=== PATIENT | female | born 1955 | race Caucasian/White ===

== ENCOUNTER → 2016-12-04 | Outpatient (CLI) | payer MEDICAID | LOC: WC.BC 14:58 | DX: Z12.31 Encounter for screening mammogram for malignant neoplasm of breast (principal) ==

== ENCOUNTER 2016-12-14 22:17 | Emergency (ER) | payer MEDICAID ==
[~2016-12-14] VITALS: Ht 158.1 cm; Wt 101.2 kg
--- OUTSIDE RECORDS SUMMARY | 2016-12-14 22:21 | XMS REPORT | Referral Summary ---
Author Author [facility] KRIST[facility] Benitez [facility], [facility] Organization [facility] KRIST[facility] Benitez [facility] Address Unknown Phone Unavailable Care Team Providers Care Accountant Manager Name Role Phone Aisha Ornelas Primary Care Physician [phone] Encounter VC Date(s): 10/20/15 - 10/20/15 [facility] KRISTIN Benitez [facility] [address] [place] [address]- Discharge Diagnosis: Myalgia Discharge Diagnosis: Depression Discharge Diagnosis: Dyslipidemia Discharge Diagnosis: Asthma Discharge Disposition: 01-Home or Self Care Attending Physician: Miles Ornelas MD Admitting Physician: Miles Ornelas MD Vital Signs Most recent to 1 oldest [Reference Range]: Temperature Tympanic 36.2 degC [36.6-38.1 degC] *LOW* (10/20/15 8:57 AM) Blood Pressure 108/72 mmHg [90-140/60-90 mmHg] (10/20/15 8:57 AM) Problem List Condition Effective Dates Status Health Status Informant Adhesive right < 08/03/14 Resolved middle ear disease(Confirmed) Asthma(Confirmed) Active Depression(Confirmed Active ) Rotator cuff < 08/03/14 Resolved tear(Confirmed) Dyslipidemia(Confirm Active ed) Family history of Active diabetes mellitus(Confirmed) Elevated fasting Active glucose(Confirmed) Insomnia(Confirmed) < 08/03/14 Resolved Morbid Active patient obesity(Confirmed) Obesity(Confirmed) Active patient Knee < 07/07/14 Resolved osteoarthritis(Confi rmed) Osteopenia(Confirmed Active )1 Osteopenia(Confirmed Active ) Panic disorder with < 08/03/14 Resolved agoraphobia(Confirme d) Seasonal Active allergies(Confirmed) Vertigo(Confirmed) < 08/03/14 Resolved Vitamin D < 08/03/14 Resolved deficiency(Confirmed ) 1dexa 08/12 Allergies, Adverse Reactions, Alerts Substance Reaction Severity Status ciprofloxacin1 Active Keflex Active niacin2 Active simvastatin3 Active 1nausea, hot flashes 2rash at high doses 3paralysis OK with penicillin Medications Advair Diskus 500 mcg-50 mcg inhalation powder See Instructions, INHALE ONE PUFF BY MOUTH TWICE A DAY, # 28 Each, 5 Refill(s), Pharmacy: [facility] #[id number] Start Date: 06/15/15 Status: Ordered cetirizine 10 mg oral tablet See Instructions, TAKE ONE TABLET BY MOUTH DAILY NEEDED FOR ALLERGY SYMPTOMS , # 90 tabs, 1 Refill(s), Pharmacy: [facility] #[id number], TAKE ONE TABLET BY MOUTH DAILY NEEDED FOR ALLERGY SYMPTOMS Start Date: 06/15/15 Stop Date: 06/15/16 Status: Ordered citalopram 40 mg oral tablet 1 tabs, Oral, Daily, # 30 tabs, 3 Refill(s), Pharmacy: [facility] #[id number] , 1 tabs Oral Daily Start Date: 07/07/14 Status: Ordered fluticasone 50 mcg/inh nasal spray 1 sprays, Nasal, BID, # 1 Each, 3 Refill(s), Pharmacy: [facility] #[id number] Start Date: 06/15/15 Status: Ordered garlic oral tablet 0 Refill(s) Start Date: 11/04/14 Status: Ordered lovastatin 40 mg oral tablet See Instructions, TAKE ONE TABLET BY MOUTH DAILY, # 90 tabs, 1 Refill(s), Pharmacy: [facility] #[id number], TAKE ONE TABLET BY MOUTH DAILY Start Date: 06/15/15 Status: Ordered meclizine 25 mg oral tablet See Instructions, TAKE ONE TABLET BY MOUTH THREE TIMES A DAY NEEDED FOR DIZZINESS, # 30 tabs, 2 Refill(s), eRx: [facility] #[id number], TAKE ONE TABLET BY MOUTH THREE TIMES A DAY NEEDED FOR DIZZINESS Start Date: 09/09/15 Status: Ordered meloxicam 15 mg oral tablet See Instructions, TAKE ONE TABLET BY MOUTH DAILY, # 30 tabs, 2 Refill(s), eRx: [facility] #[id number], TAKE ONE TABLET BY MOUTH DAILY Start Date: 10/20/15 Status: Ordered Singulair 10 mg oral tablet 1 tabs, Oral, qPM, # 30 tabs, 11 Refill(s), 1 tabs Oral qPM Start Date: 07/07/14 Status: Ordered Ventolin HFA 90 mcg/inh inhalation aerosol 2 puffs, Inhalation, QID, as needed for wheezing, # 8 g, 3 Refill(s), Pharmacy: [facility] #[id number], 2 puffs Inhalation QID,PRN:as needed for wheezing Start Date: 06/15/15 Status: Ordered Wellbutrin Oral, Daily, 0 Refill(s) Start Date: 06/15/15 Status: Ordered Results Hematology Most recent to 1 oldest [Reference Range]: Sed Rate [0-23] 8 (10/20/15 9:35 AM) Chemistry Most recent to 1 oldest [Reference Range]: Sodium Lvl [135-144 142 mEq/L mEq/L] (10/20/15 9:35 AM) Potassium Lvl 4.3 mEq/L [3.5-5.2 mEq/L] (10/20/15 9:35 AM) Chloride [99-111 110 mEq/L mEq/L] (10/20/15 9:35 AM) CO2 [22-31 mEq/L] 27 mEq/L (10/20/15 9:35 AM) AGAP [3-20] 5 (10/20/15 9:35 AM) BUN [10-20 mg/dL] 19 mg/dL (10/20/15 9:35 AM) Glucose Lvl [70-99 93 mg/dL mg/dL] (10/20/15 9:35 AM) Creatinine Lvl 0.93 mg/dL [0.57-1.11 mg/dL] (10/20/15 9:35 AM) eGFR [>60 mL/min] >60 mL/min 1 (10/20/15 9:35 AM) Calcium Lvl 9.3 mg/dL [8.9-10.5 mg/dL] (10/20/15 9:35 AM) Albumin Lvl [3.4-4.8 4.0 gm/dL gm/dL] (10/20/15 9:35 AM) Total Protein 6.7 gm/dL [6.2-8.1 gm/dL] (10/20/15 9:35 AM) Globulin [1.8-4.0 2.7 gm/dL gm/dL] (10/20/15 9:35 AM) ALT [0-55 U/L] 10 U/L (10/20/15 9:35 AM) AST [5-34 U/L] 13 U/L (10/20/15 9:35 AM) Alk Phos [40-150 70 U/L U/L] (10/20/15 9:35 AM) Bili Total [0.2-1.2 0.7 mg/dL mg/dL] (10/20/15 9:35 AM) Total CK [29-168 62 U/L U/L] (10/20/15 9:35 AM) 1Result Comment: Multiply eGFR results by 1.21 for race. Immunizations Vaccine Date Refusal Reason tetanus/diphth/pertuss (Tdap) adult/adol 07/07/14 tetanus/diphth/pertuss (Tdap) adult/adol 03/21/11 influenza virus vaccine, inactivated 05/09/15 influenza virus vaccine, inactivated 07/07/14 influenza virus vaccine, inactivated 05/02/12 influenza virus vaccine, inactivated 04/30/11 pneumococcal 13-valent conjugate vaccine1 07/07/14 pneumococcal 23-polyvalent vaccine 04/04/11 zoster vaccine live 08/06/14 1Result Comment: POSTERIOR AND LOWER THAN FLU SHOT Procedures Procedure Date Related Diagnosis Body Site Diagnostic laryngoscopy1 09/02/12 Prosthetic arthroplasty of right knee 07/29/09 Prosthetic arthroplasty of left knee 02/26/09 Appendectomy Benign skin tumor Complete repair of rotator cuff2 Repair of middle ear 1normal 2right shoulder Social History Social History Type Response Smoking Status Never smoker Assessment and Plan Extracted from: Title: Office Visit Note Author: Miles Ornelas MD Date: 10/20/15 Assessment/Plan Asthma, Unspecified asthma, uncomplicated Chronic stable no change in current treatment. Ordered: Office Visit Level 4 Est 62591 Depression, Major depressive disorder, single episode, unspecified Overall this appears stable. Medications reviewed no changes are recommended. Ordered: Office Visit Level 4 Est 06460 Dyslipidemia, Hyperlipidemia, unspecified This is chronicand stable. Because of her myalgias have asked her to stopher lovastatin for the next 2 weeks and see if that helps. If it doesn' t we'll resume that if it does seem to be helping we'll try different medication. Ordered: Office Visit Level 4 Est 46512 Myalgia, Myalgia Laboratory studies ordered. Medications reviewed. As mentioned aboveI will have herstop her lovastatin and see if that doesn't help. She may resume wcequppey44 mg daily. If not improving or further problems develop follow-up. Ordered: Comprehensive Metabolic Panel Creatine Kinase Office Visit Level 4 Est 19884 Sedimentation Rate History of learning disability I told her that I am uncomfortable and not able to fill out paperwork stating that she has a learning disability without some documentation. That's not something we can do testing for here in our office. We'll see if we can find a place that cangive ussome further information or perhaps do some further testing.
--- OUTSIDE RECORDS SUMMARY | 2016-12-14 22:21 | XMS REPORT ---
Author Author Chiara Sanchez Organization [employer] Address Unknown Phone Unavailable Care Team Providers Care Software Configuration Specialist Name Role Phone Chiara Sanchez CP Unavailable Allergies, Adverse Reactions, Alerts Substance Reaction Event Type Keflex paralysis Drug Allergy Problems Problem Type Condition Code Onset Dates Condition Status Assessment Major depressive disorder, single episode, in partial or unspecified remission 296.25 Active Problem Major depressive disorder, single episode, in partial or unspecified remission 296.25 Active Medications Medication Code System Code Instructions Start Date End Date Status Dosage Ventolin HFA [facility] [address]-24 108 (90 Base) MCG/ACT Inhalation every 4 hrs 2 puffs as needed Trazodone HCl [facility] [address]-93 50 MG Orally Once a day 1 tablet at bedtime Advair Diskus [facility] [address]-77 100-50 MCG/DOSE Inhalation Twice a day 1 puff Singulair [facility] [address]-96 10 MG Orally Once a day 1 tablet in the evening Lovastatin [facility] [address]-29 40 MG Orally Once a day 1 tablet with a meal Citalopram Hydrobromide [facility] [address]-28 40 MG Orally Once a day 1 tablet Flonase [facility] [address]-44 50 MCG/ACT Nasally Once a day 1 spray in each nostril Procedures Procedure Coding System Code Date OFFICE VISIT, EST-MOD. COMPLEXITY (25 MIN) CPT-4 52860 November 09, 2014 Vital Signs Date/Time: November 09, 2014 Height 63.5 in Weight 212.8 lbs Temperature 99.0 F Blood Pressure Diastolic 70 mm Hg Blood Pressure Systolic 104 mm Hg Cardiac Monitoring Heart Rate 82 /min BMI 37.10 Index Respiratory Rate 20 /min Results No Known Results Summary Purpose [employer] Submission
--- OUTSIDE RECORDS SUMMARY | 2016-12-14 22:21 | XMS REPORT | Referral Summary ---
Author Author [facility]ST[facility], [facility] Organization Via DebbieKRISTIN Zepeda [facility] Address Unknown Phone Unavailable Care Team Providers Care Bottle Blower Name Role Phone Randall Rivers Primary Care Physician [phone] Encounter VC Date(s): 12/29/14 - 12/29/14 [facility]RIST[facility]ite[facility], [address] [place] [address] Discharge Disposition: 01-Home or Self Care Attending Physician: Rony Rivers MD Admitting Physician: Rony Rivers MD Vital Signs Most recent to 1 oldest [Reference Range]: Temperature Tympanic 36.5 degC [36.6-38.1 degC] *LOW* (12/29/14 9:44 AM) Peripheral Pulse 72 bpm Rate [60-100 bpm] (12/29/14 9:44 AM) Blood Pressure 106/70 mmHg [90-140/60-90 mmHg] (12/29/14 9:44 AM) Problem List Condition Effective Dates Status [...] DAY, # 28 Each, 5 Refill(s), Pharmacy: [facility] #[id number] Start Date: 06/15/15 Status: Ordered cetirizine 10 mg oral tablet See Instructions, TAKE ONE TABLET BY MOUTH DAILY NEEDED FOR ALLERGY SYMPTOMS , # 90 tabs, 1 Refill(s), Pharmacy: [facility] #[id number], TAKE ONE TABLET BY MOUTH DAILY NEEDED FOR ALLERGY SYMPTOMS Start Date: 06/15/15 Stop Date: 06/15/16 Status: Ordered citalopram 40 mg oral tablet 1 tabs, Oral, Daily, # 30 tabs, 3 Refill(s), Pharmacy: [facility] #[id number] , 1 tabs Oral Daily Start Date: 07/07/14 Status: Ordered fluticasone 50 mcg/inh nasal spray 1 sprays, Nasal, BID, # 1 Each, 3 Refill(s), Pharmacy: [facility] #[id number] Start Date: 06/15/15 Status: Ordered garlic oral tablet 0 Refill(s) Start Date: 11/04/14 Status: Ordered lovastatin 40 mg oral tablet See Instructions, TAKE ONE TABLET BY MOUTH DAILY, # 90 tabs, 1 Refill(s), Pharmacy: [facility] #[id number], TAKE ONE TABLET BY MOUTH DAILY Start Date: 06/15/15 Status: Ordered MiraLax oral powder for reconstitution 17 g, Oral, Daily, dissolve in water before taking, X 30 days, # 510 g, 1 Refill (s), Pharmacy: [facility] #[id number] Start Date: 06/15/15 Stop Date: 08/14/15 Status: Ordered Singulair 10 mg oral tablet 1 tabs, Oral, qPM, # 30 tabs, 11 Refill(s), 1 tabs Oral qPM Start Date: 07/07/14 Status: Ordered Ventolin HFA 90 mcg/inh inhalation aerosol 2 puffs, Inhalation, QID, as needed for wheezing, # 8 g, 3 Refill(s), Pharmacy: [facility] #[id number], 2 puffs Inhalation QID,PRN:as needed for wheezing Start Date: 06/15/15 Status: Ordered Wellbutrin Oral, Daily, 0 Refill(s) Start Date: 06/15/15 Status: Ordered Results No data available for this section Immunizations Vaccine Date Refusal Reason tetanus/diphth/pertuss (Tdap) [...] Extracted from: Title: Office Visit Note Author: Rony Rivers MD Date: 12/29/14 Assessment/Plan Asthma Depression Seasonal allergies Plan: For now, continue all current medications. I've consulted with Dr. Nguyen and waiting to hear back from her. Continue all current medications such as Singulair Zyrtec Advair and pro-air. I do think you could stay on the Provera just 4 times a day. I wonder if the sensation of shortness of breath could possibly be anxiety we'll keep this in mind as I continue to treat.
--- OUTSIDE RECORDS SUMMARY | 2016-12-14 22:21 | XMS REPORT | Referral Summary ---
Author Author [facility] K[facility]STIN [facility]itez [facility], [facility] Organization [facility]ST[facility]ite[facility] Address Unknown Phone Unavailable Care Team Providers Care Foaming Machine Operator Name Role Phone Aisha Ornelas Primary Care Physician [phone] Encounter [facility] [id number] Date(s): 05/01/16 - 05/01/16 [facility]RISTIN Benitez [facility], [address] [place] [address]- Discharge Diagnosis: Encounter for immunization Discharge Diagnosis: Asthma exacerbation Discharge Diagnosis: Dry cough Discharge Diagnosis: Hand dermatitis Discharge Diagnosis: Seasonal allergies Discharge Diagnosis: Lumbago Discharge Disposition: 01-Home or Self Care Attending Physician: Isamar Shields APRN Admitting Physician: Isamar Shields APRN Vital Signs Most recent to 1 oldest [Reference Range]: Temperature Tympanic 36.1 degC [36.6-38.1 degC] *LOW* (05/01/16 1:21 PM) Peripheral Pulse 84 bpm Rate [60-100 bpm] (05/01/16 1:21 PM) Respiratory Rate 24 br/min [14-20 br/min] *HI* (05/01/16 1:21 PM) Blood Pressure 118/80 mmHg [90-140/60-90 mmHg] (05/01/16 1:21 PM) SpO2 95 % (05/01/16 1:21 PM) Problem List Condition Effective Dates Status Health [...] DAY, # 28 Each, 5 Refill(s), Pharmacy: [facility] #[id number] Start Date: 06/15/15 Status: Ordered cetirizine 10 mg oral tablet See Instructions, TAKE ONE TABLET BY MOUTH DAILY NEEDED FOR ALLERGY SYMPTOMS , # 90 tabs, 0 Refill(s), Pharmacy: [facility] #[id number], TAKE ONE TABLET BY MOUTH DAILY NEEDED FOR ALLERGY SYMPTOMS Start Date: 04/18/16 Status: Ordered fluticasone 50 mcg/inh nasal spray 1 sprays, Nasal, BID, # 1 Each, 3 Refill(s), Pharmacy: [facility] #[id number] Start Date: 04/24/16 Status: Ordered garlic oral tablet 0 Refill(s) Start Date: 11/04/14 Status: Ordered lovastatin 40 mg oral tablet See Instructions, TAKE ONE TABLET BY MOUTH DAILY, # 90 tabs, 3 Refill(s), Pharmacy: [facility] #[id number], TAKE ONE TABLET BY MOUTH DAILY Start Date: 02/17/16 Status: Ordered meclizine 25 mg oral tablet See Instructions, TAKE ONE TABLET BY MOUTH THREE TIMES A DAY NEEDED FOR DIZZINESS, # 30 tabs, eRx: [facility] #[id number], TAKE ONE TABLET BY MOUTH THREE TIMES A DAY NEEDED FOR DIZZINESS Start Date: 02/17/16 Status: Ordered meloxicam 15 mg oral tablet See Instructions, TAKE ONE TABLET BY MOUTH DAILY as needed for pain, # 30 tabs, 2 Refill(s), Pharmacy: [facility] #[id number], TAKE ONE TABLET BY MOUTH DAILY as needed for pain Start Date: 11/07/15 Status: Ordered predniSONE 10 mg oral tablet See Instructions, 4 tabs dly 3 days, 3 tabs dly 3 days, 2 tabs dly 3 days, one tab dly 3 days then stop. with food, # 30 tabs, 0 Refill(s), Pharmacy: [facility] #[id number], 4 tabs dly 3 days, 3 tabs dly 3 days, 2 tabs dly 3 days, one tab... Start Date: 05/01/16 Stop Date: 05/15/16 Status: Ordered Singulair 10 mg oral tablet 10 mg 1 tabs, Oral, qPM, # 90 tabs, 3 Refill(s), Pharmacy: [facility] # [id number], 1 tabs Oral qPM Start Date: 05/01/16 Status: Ordered triamcinolone 0.1% topical cream 1 chinmay, Topical, BID, hand eczema, # 60 g, 0 Refill(s), Pharmacy: [facility] #[id number] Start Date: 05/01/16 Status: Ordered Ventolin HFA 90 mcg/inh inhalation aerosol 2 puffs, Inhalation, QID, as needed for wheezing, # 8 g, 3 Refill(s), Pharmacy: [facility] #[id number], 2 puffs Inhalation QID,PRN:as needed for wheezing Start Date: 06/15/15 Status: Ordered Vitamin D3 1000 intl units oral tablet 1,000 Intl_Units 1 tabs, Oral, Daily, # 30 tabs, 0 Refill(s) Start Date: 03/16/16 Status: Ordered Wellbutrin Oral, Daily, TAKE 300 MG QD, 0 Refill(s) Start Date: 06/15/15 Status: Ordered Results No data available for this section Immunizations Vaccine Date Refusal Reason tetanus/diphth/pertuss (Tdap) adult/adol 07/07/14 tetanus/diphth/pertuss (Tdap) adult/adol 03/21/11 influenza virus vaccine, inactivated 05/01/16 influenza virus vaccine, inactivated 05/09/15 influenza virus [...] and Plan Extracted from: Title: Office Visit Note-asthma Author: Isamar Shields MEAT SALES AND STORAGE MANAGER Date: 05/01 exac Assessment/Plan 1.Asthma exacerbation Mild. Prolonged. Recommend prednisone taper. Side effects discussed. Continue use of Advair and albuterol as she is doing. Continue using spacer. Recommend restarting Singulair 10 mg daily. ContinueCetirizine 10 mg daily. Plan recheck in 10 days or sooner if symptoms fail to improve. Ordered: XR Chest 2 Views 2.Dry cough Chest x-ray to rule out other etiology. I suspecther cough is related to asthma exacerbation. Ordered: XR Chest 2 Views 3.Hand dermatitis Discussed nature of her Route hand dermatitis. Recommend triamcinolone creamtwice a day till clear. Discussed the importance of moisturizmoisturizinging hands. 4.Seasonal allergies Continue routine medications. 5.Lumbago Discussed with patient I suspect her back pain is more muscular in nature. Discussed stretching exercises and strengthening for the back. Heat, muscle rubs. Continue meloxicam. Counseled on flu vaccine. Given by nursing.
--- OUTSIDE RECORDS SUMMARY | 2016-12-14 22:21 | XMS REPORT ---
Author Author Savage Rodriguez [facility] Address [address] [place] [address] Care Team Providers Care Flat Spring Assembler Name Role Phone Savage Rodriguez Unavailable [phone] PROBLEMS Type Condition ICD9-CM Code RBR79-LE Code Onset Dates Condition Status SNOMED Code Problem Major depressive disorder, recurrent, in partial remission F33.41 Active 58933079 Assessment Major depressive disorder, recurrent, in partial remission F33.41 Jun, Active 32408779 Assessment Disappearance and of family member Z63.4 Jun, Active [id number] ALLERGIES Substance Reaction Event Type Date Status Keflex paralysis Drug Allergy Jun, Active seasonial allergies Unknown Non Drug Allergy Jun, Active SOCIAL HISTORY No smoking Hx information available PLAN OF CARE VITAL SIGNS Weight 207.8 lbs 2016-07-03 Height 63.5 in 2016-07-03 Temperature 98.6 degrees Fahrenheit 2016-07-03 BMI 36.23 kg/m2 2016-07-03 Heart Rate 80 /min 2016-07-03 Respiratory Rate 20 /min 2016-07-03 Blood pressure systolic 118 mm Hg 2016-07-03 Blood pressure diastolic 80 mm Hg 2016-07-03 MEDICATIONS Medication Instructions Dosage Frequency Start Date End Date Duration Status Flonase 50 MCG/ACT Nasally Once a day 1 spray in each nostril 24h 30 day(s) Active Wellbutrin XL 300 MG Orally Once a day 1 tablet in the morning 24h Apr, 90 days Active Advair Diskus 100-50 MCG/DOSE Inhalation Twice a day 1 puff 12h Active Ventolin HFA 108 (90 Base) MCG/ACT Inhalation every 4 hrs 2 puffs as needed 4h Active Citalopram Hydrobromide 40 MG Orally Once a day 1 tablet 24h 90 days Active Wellbutrin XL 150 MG Orally Once a day 1 tablet in addition to 300mg to equal wellbutrin xl 450mg 24h Jun, 90 days Active Lovastatin 40 MG Orally Once a day 1 tablet with a meal 24h 30 day(s ) Active Singulair 10 MG Orally Once a day 1 tablet in the evening 24h 30 day( s) Active Meclizine HCl 25 MG Orally Once a day 1 tablet as needed 24h Active RESULTS No Results PROCEDURES Procedure Date Ordered Related Diagnosis Body Site OFFICE VISIT, EST-MOD. COMPLEXITY (25 MIN) Jul 03, 2016 IMMUNIZATIONS No Known Immunizations
--- OUTSIDE RECORDS SUMMARY | 2016-12-14 22:22 | XMS REPORT | Referral Summary ---
Author Author [facility]ST[facility], [facility] Organization [facility] Address Unknown Phone Unavailable Care Team Providers Care Retoucher Photoengraving Name Role Phone Aisha Ornelas Primary Care Physician [phone] Encounter VC Date(s): 08/06/16 - 08/06/16 [facility] KRIST[facility] Benitez [facility], [address] [place] [address]- Discharge Diagnosis: Asthma exacerbation Discharge Diagnosis: Hoarseness Discharge Diagnosis: Acute URI Discharge Disposition: 01-Home or Self Care Attending Physician: Ruben Castellanos PA-C Admitting Physician: Ruben Castellanos PA-C Vital Signs Most recent to 1 oldest [Reference Range]: Temperature Tympanic 36.8 degC [36.6-38.1 degC] (08/06/16 1:10 PM) Peripheral Pulse 78 bpm Rate [60-100 bpm] (08/06/16 1:10 PM) Blood Pressure 122/86 mmHg [90-140/60-90 mmHg] (08/06/16 1:10 PM) SpO2 94 % (08/06/16 1:10 PM) Problem List Condition Effective Dates Status Health Status Informant Adhesive right < 08/03/14 Resolved middle ear disease(Confirmed) Asthma(Confirmed) Active Depression(Confirmed Active ) Rotator cuff < 08/03/14 Resolved tear(Confirmed) Dyslipidemia(Confirm Active ed) Family history of Active diabetes mellitus(Confirmed) Elevated fasting Active glucose(Confirmed) Insomnia(Confirmed) < 08/03/14 Resolved Morbid Active patient obesity(Confirmed) Obesity(Confirmed) Active Knee < 07/07/14 Resolved osteoarthritis(Confi rmed) Osteopenia(Confirmed [...] DAY, # 28 Each, 5 Refill(s), Pharmacy: [facility] #[id number] Start Date: 06/18/16 Status: Ordered cetirizine 10 mg oral tablet See Instructions, TAKE ONE TABLET BY MOUTH DAILY NEEDED FOR ALLERGY SYMPTOMS , # 90 tabs, 1 Refill(s), eRx: [facility] #[id number], TAKE ONE TABLET BY MOUTH DAILY NEEDED FOR ALLERGY SYMPTOMS Start Date: 07/11/16 Status: Ordered fluticasone 50 mcg/inh nasal spray 1 sprays, Nasal, BID, # 1 Each, 3 Refill(s), Pharmacy: [facility] #[id number] Start Date: 04/24/16 Status: Ordered garlic oral tablet 0 Refill(s) Start Date: 11/04/14 Status: Ordered lovastatin 40 mg oral tablet See Instructions, TAKE ONE TABLET BY MOUTH DAILY, # 90 tabs, 3 Refill(s), Pharmacy: [facility] #[id number], TAKE ONE TABLET BY MOUTH DAILY Start Date: 02/17/16 Status: Ordered meclizine 25 mg oral tablet See Instructions, TAKE ONE TABLET BY MOUTH THREE TIMES A DAY NEEDED FOR DIZZINESS, # 30 tabs, eRx: [facility] #[id number], TAKE ONE TABLET BY MOUTH THREE TIMES A DAY NEEDED FOR DIZZINESS Start Date: 07/13/16 Status: Ordered meloxicam 15 mg oral tablet See Instructions, TAKE ONE TABLET BY MOUTH DAILY, # 30 tabs, 2 Refill(s), eRx: [facility] #[id number], TAKE ONE TABLET BY MOUTH DAILY Start Date: 06/15/16 Status: Ordered predniSONE 10 mg oral tablet See Instructions, 3 tabs Oral Daily for three days 2 tabs Oral Daily three days 1 tab Oral Daily for three days, # 18 tabs, 0 Refill(s), Pharmacy: [facility] #[id number], 3 tabs Oral Daily for three days; 2 tabs Oral Daily three days; 1 tab Oral D... Start Date: 08/06/16 Stop Date: 08/14/16 Status: Ordered Singulair 10 mg oral tablet 10 mg 1 tabs, Oral, qPM, # 90 tabs, 3 Refill(s), Pharmacy: [facility] # [id number], 1 tabs Oral qPM Start Date: 05/01/16 Status: Ordered triamcinolone 0.1% topical cream 1 chinmay, Topical, BID, hand eczema, # 60 g, 0 Refill(s), Pharmacy: [facility] #[id number] Start Date: 05/01/16 Status: Ordered Ventolin HFA 90 mcg/inh inhalation aerosol 2 puffs, Inhalation, QID, as needed for wheezing, # 8 g, 3 Refill(s), Pharmacy: [facility] #[id number], 2 puffs Inhalation QID,PRN:as needed for wheezing Start Date: 06/18/16 Status: Ordered Vitamin D3 1000 intl units oral tablet 1,000 Intl_Units 1 tabs, Oral, Daily, # 30 tabs, 0 Refill(s) Start Date: 03/16/16 Status: Ordered Wellbutrin Oral, Daily, TAKE 300 MG QD, 0 Refill(s) Start Date: 06/15/15 Status: Ordered Results No data available for this section Immunizations Given and Recorded Vaccine Date Status Refusal Reason tetanus/diphth/pertuss (Tdap) adult/adol 07/07/14 Given tetanus/diphth/pertuss (Tdap) adult/adol 03/21/11 Recorded influenza virus vaccine, inactivated 05/01/16 Given influenza virus vaccine, inactivated 05/09/15 Given influenza virus vaccine, inactivated 07/07/14 Recorded influenza virus vaccine, inactivated 05/02/12 Recorded influenza virus vaccine, inactivated 04/30/11 Recorded pneumococcal 13-valent conjugate vaccine1 07/07/14 Given pneumococcal 23-polyvalent vaccine 04/04/11 Recorded zoster vaccine live 08/06/14 Given 1Result Comment: POSTERIOR AND LOWER THAN FLU SHOT Procedures Procedure Date Related Diagnosis Body Site Diagnostic laryngoscopy1 09/02/12 Prosthetic arthroplasty of right knee 07/29/09 Prosthetic arthroplasty of left knee 02/26/09 Appendectomy Benign skin tumor Complete repair of rotator cuff2 Repair of middle ear 1normal 2right shoulder Social History Social History Type Response Smoking Status Never smoker Assessment and Plan Extracted from: Title: Ambulatory Patient Education Author: Ruben Castellanos PA-C Date: ENT Hoarseness Hoarseness is any abnormal change in your voice.Hoarseness can make it difficult to speak. Your voice may sound raspy, breathy, or strained. Hoarseness is caused by a problem with the vocal cords. The vocal cords are two bands of tissue inside your voice box (larynx). When you speak, your vocal cords move back and forth to create sound. The surfaces of your vocal cords need to be smooth for your voice to sound clear. Swelling or lumps on the vocal cords can cause hoarseness. Common causes of vocal cord problems include: Upper airway infection. A long-term cough. Straining or overusing your voice. Smoking. Allergies. Vocal cord growths. Stomach acids that flow up from your stomach and irritate your vocal cords (gastroesophageal reflux). HOME CARE INSTRUCTIONS Watch your condition for any changes. To ease any discomfort that you feel: Rest your voice. Do not whisper. Whispering can cause muscle strain. Do not speak in a loud or harsh voice that makes your hoarseness worse. Do not use any tobacco products, including cigarettes, chewing tobacco, or electronic cigarettes. If you need help quitting, ask your health care provider. Avoid secondhand smoke. Do not eat foods that give you heartburn. Heartburn can make gastroesophageal reflux worse. Do not drink coffee. Do not drink alcohol. Drink enough fluids to keep your urine clear or pale yellow. Use a humidifier if the air in your home is dry. SEEK MEDICAL CARE IF: You have hoarseness that lasts longer than 3 weeks. You almost lose or completelylose your voice for longer than 3 days. You have pain when you swallow or try to talk. You feel a lump in your neck. SEEK IMMEDIATE MEDICAL CARE IF: You have trouble swallowing. You feel as though you are choking when you swallow. You cough up blood or vomit blood. You have trouble breathing. This information is not intended to replace advice given to you by your health care provider. Make sure you discuss any questions you have with your health care provider. Document Released: 06/28/2006 Document Revised: 11/29/2015 Document Reviewed: Elsevier Interactive Patient Education 2016 [employer]. Family Medicine Asthma Attack Prevention Although there is no way to prevent asthma from starting, you can take steps to control the disease and reduce its symptoms. Learn about your asthma and how to control it. Take an active role to control your asthma by working with your health care provider to create and follow an asthma action plan. An asthma action plan guides you in: Taking your medicines properly. Avoiding things that set off your asthma or make your asthma worse ( asthma triggers). Tracking your level of asthma control. Responding to worsening asthma. Seeking emergency care when needed. To track your asthma, keep records of your symptoms, check your peak flow number using a handheld device that shows how well air moves out of your lungs ( peak flow meter), and get regular asthma checkups. WHAT ARE SOME WAYS TO PREVENT AN ASTHMA ATTACK? Take medicines as directed by your health care provider. Keep track of your asthma symptoms and level of control. With your health care provider, write a detailed plan for taking medicines and managing an asthma attack. Then be sure to follow your action plan. Asthma is an ongoing condition that needs regular monitoring and treatment. Identify and avoid asthma triggers. Many outdoor allergens and irritants (such as pollen, mold, cold air, and air pollution) can trigger asthma attacks. Find out what your asthma triggers are and take steps to avoid them. Monitor your breathing. Learn to recognize warning signs of an attack, such as coughing, wheezing, or shortness of breath. Your lung function may decrease before you notice any signs or symptoms, so regularly measure and record your peak airflow with a home peak flow meter. Identify and treat attacks early. If you act quickly, you are less likely to have a severe attack. You will also need less medicine to control your symptoms. When your peak flow measurements decrease and alert you to an upcoming attack, take your medicine as instructed and immediately stop any activity that may have triggered the attack. If your symptoms do not improve, get medical help. Pay attention to increasing quick-relief inhaler use. If you find yourself relying on your quick-relief inhaler, your asthma is not under control. See your health care provider about adjusting your treatment. WHAT CAN MAKE MY SYMPTOMS WORSE? A number of common things can set off or make your asthma symptoms worse and cause temporary increased inflammation of your airways. Keep track of your asthma symptoms for several weeks, detailing all the environmental and emotional factors that are linked with your asthma. When you have an asthma attack, go back to your asthma diary to see which factor, or combination of factors, might have contributed to it. Once you know what these factors are, you can take steps to control many of them. If you have allergies and asthma, it is important to take asthma prevention steps at home. Minimizing contact with the substance to which you are allergic will help prevent an asthma attack. Some triggers and ways to avoid these triggers are: Animal Dander: Some people are allergic to the flakes of skin or dried saliva from animals with fur or feathers. There is no such thing as a hypoallergenic dog or cat breed. All dogs or cats can cause allergies, even if they don't shed. Keep these pets out of your home. If you are not able to keep a pet outdoors, keep the pet out of your bedroom and other sleeping areas at all times, and keep the door closed. Remove carpets and furniture covered with cloth from your home. If that is not possible, keep the pet away from fabric-covered furniture and carpets. Dust Mites: Many people with asthma are allergic to dust mites. Dust mites are tiny bugs that are found in every home in mattresses, pillows, carpets, fabric-covered furniture, bedcovers, clothes, stuffed toys, and other fabric-covered items. Cover your mattress in a special dust-proof cover. Cover your pillow in a special dust-proof cover, or wash the pillow each week in hot water. Water must be hotter than 130 F (54.4 C) to kill dust mites. Cold or warm water used with detergent and bleach can also be effective. Wash the sheets and blankets on your bed each week in hot water. Try not to sleep or lie on cloth-covered cushions. Call ahead when traveling and ask for a smoke-free hotel room. Bring your own bedding and pillows in case the hotel only supplies feather pillows and down comforters, which may contain dust mites and cause asthma symptoms. Remove carpets from your bedroom and those laid on concrete, if you can. Keep stuffed toys out of the bed, or wash the toys weekly in hot water or cooler water with detergent and bleach. Cockroaches: Many people with asthma are allergic to the droppings and remains of cockroaches. Keep food and garbage in closed containers. Never leave food out. Use poison baits, traps, powders, gels, or paste (for example, boric acid ). If a spray is used to kill cockroaches, stay out of the room until the odor goes away. Indoor Mold: Fix leaky faucets, pipes, or other sources of water that have mold around them. Clean floors and moldy surfaces with a fungicide or diluted bleach. Avoid using humidifiers, vaporizers, or swamp coolers. These can spread molds through the air. Pollen and Outdoor Mold: When pollen or mold spore counts are high, try to keep your windows closed. Stay indoors with windows closed from late morning to afternoon. Pollen and some mold spore counts are highest at that time. Ask your health care provider whether you need to take anti-inflammatory medicine or increase your dose of the medicine before your allergy season starts. Other Irritants to Avoid: Tobacco smoke is an irritant. If you smoke, ask your health care provider how you can quit. Ask family members to quit smoking, too. Do not allow smoking in your home or car. If possible, do not use a wood-burning stove, kerosene heater, or fireplace. Minimize exposure to all sources of smoke, including incense, candles, fires, and fireworks. Try to stay away from strong odors and sprays, such as perfume, talcum powder, hair spray, and paints. Decrease humidity in your home and use an indoor air cleaning device. Reduce indoor humidity to below 60%. Dehumidifiers or central air conditioners can do this. Decrease house dust exposure by changing furnace and air cooler filters frequently. Try to have someone else vacuum for you once or twice a week. Stay out of rooms while they are being vacuumed and for a short while afterward. If you vacuum, use a dust mask from a hardware store, a double-layered or microfilter vacuum freight car cleaner bag, or a vacuum freight car cleaner with a HEPA filter. Sulfites in foods and beverages can be irritants. Do not drink beer or wine or eat dried fruit, processed potatoes, or shrimp if they cause asthma symptoms. Cold air can trigger an asthma attack. Cover your nose and mouth with a scarf on cold or windy days. Several health conditions can make asthma more difficult to manage, including a runny nose, sinus infections, reflux disease, psychological stress, and sleep apnea. Work with your health care provider to manage these conditions. Avoid close contact with people who have a respiratory infection such as a cold or the flu, since your asthma symptoms may get worse if you catch the infection. Wash your hands thoroughly after touching items that may have been handled by people with a respiratory infection. Get a flu shot every year to protect against the flu virus, which often makes asthma worse for days or weeks. Also get a pneumonia shot if you have not previously had one. Unlike the flu shot, the pneumonia shot does not need to be given yearly. Medicines: Talk to your health care provider about whether it is safe for you to take aspirin or non-steroidal anti-inflammatory medicines (NSAIDs). In a small number of people with asthma, aspirin and NSAIDs can cause asthma attacks. These medicines must be avoided by people who have known aspirin-sensitive asthma. It is important that people with aspirin-sensitive asthma read labels of all andr-nsx-mkewqrp medicines used to treat pain, colds, coughs, and fever. Beta-blockers and KAVITHA inhibitors are other medicines you should discuss with your health care provider. HOW CAN I FIND OUT WHAT I AM ALLERGIC TO? Ask your asthma health care provider about allergy skin testing or blood testing (the RAST test) to identify the allergens to which you are sensitive. If you are found to have allergies, the most important thing to do is to try to avoid exposure to any allergens that you are sensitive to as much as possible. Other treatments for allergies, such as medicines and allergy shots ( immunotherapy) are available. CAN I EXERCISE? Follow your health care provider's advice regarding asthma treatment before exercising. It is important to maintain a regular exercise program, but vigorous exercise or exercise in cold, humid, or dry environments can cause asthma attacks, especially for those people who have exercise-induced asthma. This information is not intended to replace advice given to you by your health care provider. Make sure you discuss any questions you have with your health care provider. Document Released: 07/03/2010 Document Revised: 07/20/2014 Document Reviewed: [employer] Interactive Patient Education 2016 [employer] No follow up information was provided. Extracted from: Title: ST, hoarseness Author: Ruben Castellanos PA-C Date: 08/06/16 Assessment/Plan Acute URI Recommend supportive care. Rest. Practice good hand hygiene. Increase fluids. Patient was given a handout of ykcn-vbu-mevxhcl medications that were recommended for the patient. Tylenol/Ibuprofen as needed for fever or pain. FU with PCP if not improving, worsening symptoms, or as needed. Questions were answered. Patient verbalized understanding. Patient left in stable condition. Asthma exacerbation Patient was givena steroid tapering dose. Increase the use of albuterol as needed every 4-6 hours. Continue with Advair Diskus and the allergy medication. Patient was given handouts on asthmaand on hoarseness. If she has severe shortness of breath despite treatment recommended follow-up in ER for additional assessment.Tylenol/Ibuprofen as needed for fever or pain. Recommend supportive care. Rest. Practice good hand hygiene. Increase fluids. FU with PCP if not improving, worsening symptoms, or as needed. Questions were answered. Patient verbalized understanding. Patient left in stable condition. Hoarseness Rest, continue with conservative measures, pulse cough drops, teas, adequate fluid intake. If this persists beyond 3 weeks with following conservative measures including vocal rest recommend follow-up with primary care.
--- OUTSIDE RECORDS SUMMARY | 2016-12-14 22:22 | XMS REPORT | Referral Summary ---
Author Author [facility], Family [facility] Organization [facility], [facility] Address Unknown Phone Unavailable Care Team Providers Care Auricular Therapist Name Role Phone Aisha Ornelas Primary Care Physician [phone] Encounter Date(s): 08/29/16 - 08/29/16 [facility], [address] [place] [address]- Discharge Diagnosis: Seasonal allergies Discharge Diagnosis: Right acute suppurative otitis media Discharge Diagnosis: Asthma Discharge Disposition: 01-Home or Self Care Attending Physician: Isamar Shields APRN Admitting Physician: Isamar Shields APRN Vital Signs Most recent to 1 oldest [Reference Range]: Temperature Tympanic 37.5 degC [36.6-38.1 degC] (08/29/16 10:35 AM) Peripheral Pulse 85 bpm Rate [60-100 bpm] (08/29/16 10:35 AM) Respiratory Rate 16 br/min [14-20 br/min] (08/29/16 10:35 AM) Blood Pressure 128/68 mmHg [90-140/60-90 mmHg] (08/29/16 10:35 AM) SpO2 96 % (08/29/16 10:35 AM) Problem List Condition Effective Dates Status Health Status Informant Asthma(Confirmed) Active Adhesive right < 08/03/14 Resolved middle ear disease(Confirmed) Depression(Confirmed Active ) Rotator cuff < 08/03/14 [...] DAY, # 28 Each, 5 Refill(s), Pharmacy: [facility] #[id number] Start Date: 06/18/16 Status: Ordered amoxicillin 875 mg oral tablet 875 mg 1 tabs, Oral, BID, X 10 days, # 20 tabs, 0 Refill(s), Pharmacy: [facility] #[id number], 1 tabs Oral BID,x10 days Start Date: 08/29/16 Stop Date: 09/08/16 Status: Ordered cetirizine 10 mg oral tablet See Instructions, TAKE ONE TABLET BY MOUTH DAILY NEEDED FOR ALLERGY SYMPTOMS , # 90 tabs, 1 Refill(s), eRx: [facility] #[id number], TAKE ONE TABLET BY MOUTH DAILY NEEDED FOR ALLERGY SYMPTOMS Start Date: 07/11/16 Status: Ordered fluticasone 50 mcg/inh nasal spray 1 sprays, Nasal, BID, # 1 Each, 3 Refill(s), Pharmacy: [facility] #[id number] Start Date: 04/24/16 Status: Ordered garlic oral tablet 0 Refill(s) Start Date: 11/04/14 Status: Ordered lovastatin 40 mg oral tablet See Instructions, TAKE ONE TABLET BY MOUTH DAILY, # 90 tabs, 3 Refill(s), Pharmacy: [facility] #[id number], TAKE ONE TABLET BY MOUTH DAILY Start Date: 02/17/16 Status: Ordered meclizine 25 mg oral tablet See Instructions, TAKE ONE TABLET BY MOUTH THREE TIMES A DAY NEEDED FOR DIZZINESS, # 30 tabs, eRx: [facility] #[id number], TAKE ONE TABLET BY MOUTH THREE TIMES A DAY NEEDED FOR DIZZINESS Start Date: 08/13/16 Status: Ordered meloxicam 15 mg oral tablet See Instructions, TAKE ONE TABLET BY MOUTH DAILY, # 30 tabs, 2 Refill(s), eRx: [facility] #[id number], TAKE ONE TABLET BY MOUTH DAILY Start Date: 06/15/16 Status: Ordered Singulair 10 mg oral tablet 10 mg 1 tabs, Oral, qPM, # 90 tabs, 3 Refill(s), Pharmacy: [facility] # [id number], 1 tabs Oral qPM Start Date: 05/01/16 Status: Ordered triamcinolone 0.1% topical cream 1 chinmay, Topical, BID, hand eczema, # 60 g, 0 Refill(s), Pharmacy: [facility] #[id number] Start Date: 05/01/16 Status: Ordered Ventolin HFA 90 mcg/inh inhalation aerosol 2 puffs, Inhalation, QID, as needed for wheezing, # 8 g, 3 Refill(s), Pharmacy: [facility] #[id number], 2 puffs Inhalation QID,PRN:as needed for wheezing [...] and Plan Extracted from: Title: Office Visit Note-ear Author: Isamar Shields GRINDING MACHINE OPERATOR PORTABLE Date: 08/29/16 infection Assessment/Plan 1.Right acute suppurative otitis media Amoxicillin 875 mg one by mouth twice a day 10 days. Tylenol as needed for comfort. Ordered: Office Visit Level 3 Est 75559 2.Seasonal allergies Discussed with patient I felt her [place] eye symptoms were related to allergies. Discussed ways to decrease allergens within the home. Recommend saline eyedrops and saline nasal rinsesin addition to her usual medications. Ordered: Office Visit Level 3 Est 71924 3.Asthma Continue Advair long-term. Let us know if she has any issues. Ordered: Office Visit Level 3 Est 22949
--- OUTSIDE RECORDS SUMMARY | 2016-12-14 22:22 | XMS REPORT | Referral Summary ---
Author Author [facility], Family [facility] Organization [facility] Address Unknown Phone Unavailable Care Team Providers Care Executive Director Sheltered Workshop Name Role Phone Aisha Ornelas Primary Care Physician [phone] Encounter VC Date(s): 12/10/14 - 12/10/14 [facility], [address] [place] [address] Discharge Disposition: 01-Home or Self Care Attending Physician: Rony Rivers MD Admitting Physician: Rony Rivers MD Vital Signs Most recent to 1 oldest [Reference Range]: Temperature Tympanic 36.7 degC [36.6-38.1 degC] (12/10/14 2:40 PM) Peripheral Pulse 92 bpm Rate [60-100 bpm] (12/10/14 2:40 PM) Respiratory Rate 14 br/min [14-20 br/min] (12/10/14 2:40 PM) Blood Pressure 112/72 mmHg [90-140/60-90 mmHg] (12/10/14 2:40 PM) Problem List Condition Effective Dates Status [...] PUFF BY MOUTH TWICE A DAY, # 60 unknown unit, 5 Refill(s), eRx: [facility] #[id number], INHALE ONE PUFF BY MOUTH TWICE A DAY Start Date: 08/23/14 Status: Ordered cetirizine 10 mg oral tablet See Instructions, TAKE ONE TABLET BY MOUTH DAILY NEEDED FOR ALLERGY SYMPTOMS , # 90 tabs, 1 Refill(s), eRx: [facility] #[id number], TAKE ONE TABLET BY MOUTH DAILY NEEDED FOR ALLERGY SYMPTOMS Start Date: 10/12/14 Status: Ordered citalopram 40 mg oral tablet 1 tabs, Oral, Daily, # 30 tabs, 3 Refill(s), Pharmacy: [facility] #[id number] , 1 tabs Oral Daily Start Date: 07/07/14 Status: Ordered fluticasone 50 mcg/inh nasal spray 1 sprays, Nasal, BID, # 1 Each, 3 Refill(s), Pharmacy: [facility] #[id number] Start Date: 07/07/14 Status: Ordered garlic oral tablet 0 Refill(s) Start Date: 11/04/14 Status: Ordered lovastatin 40 mg oral tablet See Instructions, TAKE ONE TABLET BY MOUTH DAILY, # 90 tabs, 1 Refill(s), Pharmacy: [facility] #[id number], TAKE ONE TABLET BY MOUTH DAILY Start Date: 02/01/15 Status: Ordered Singulair 10 mg oral tablet 1 tabs, Oral, qPM, # 30 tabs, 11 Refill(s), 1 tabs Oral qPM Start Date: 07/07/14 Status: Ordered Ventolin HFA 90 mcg/inh inhalation aerosol 2 puffs, Inhalation, QID, as needed for wheezing, # 8 g, 3 Refill(s), Pharmacy: [facility] #[id number], 2 puffs Inhalation QID,PRN:as needed for wheezing Start Date: 04/25/15 Status: Ordered Results No data available for [...] Visit Note Author: Rony Rivers MD Date: 12/10/14 Assessment/Plan Asthma Plan: I want to get a pulmonary function test. I want you to decrease your rescue inhaler to 4 times a day or less. I'm giving you a steroid taper and I wants to follow-up in one to 2 weeks. Orders: predniSONE, See Instructions, Take 6 tabs on day one and then decrease by one tablet daily until gone., # 21 tabs, 0 Refill(s), Pharmacy: [facility] #[id number], Take 6 tabs on day one and then decrease by one tablet daily until gone.
--- OUTSIDE RECORDS SUMMARY | 2016-12-14 22:22 | XMS REPORT | Referral Summary ---
Author Author [facility], [facility] Organization [facility] Address Unknown Phone Unavailable Care Team Providers Care Prop Drawer Name Role Phone Aisha Ornelas Primary Care Physician [phone] Encounter Date(s): 05/09/15 - 05/09/15 [facility], [address] [place] [address]- Discharge Diagnosis: Obesity Discharge Diagnosis: Triceps strain Discharge Diagnosis: Sinusitis Discharge Diagnosis: Depression Discharge Diagnosis: Dyslipidemia Discharge Diagnosis: Asthma Discharge Diagnosis: Seasonal allergies Discharge Diagnosis: Elevated fasting glucose Discharge Disposition: 01-Home or Self Care Attending Physician: Isamar Shields APRN Admitting Physician: Isamar Shields APRN Vital Signs Most recent to 1 oldest [Reference Range]: Temperature Tympanic 36.4 degC [36.6-38.1 degC] *LOW* (05/09/15 10:21 AM) Peripheral Pulse 72 bpm Rate [60-100 bpm] (05/09/15 10:21 AM) Blood Pressure 122/84 mmHg [90-140/60-90 mmHg] (05/09/15 10:21 AM) Problem List Condition Effective Dates Status [...] DAY, # 28 Each, 5 Refill(s), Pharmacy: [facility] #[id number] Start Date: 06/15/15 Status: Ordered cetirizine 10 mg oral tablet See Instructions, TAKE ONE TABLET BY MOUTH DAILY NEEDED FOR ALLERGY SYMPTOMS , # 90 tabs, 1 Refill(s), Pharmacy: [facility] #[id number], TAKE ONE TABLET BY MOUTH DAILY NEEDED FOR ALLERGY SYMPTOMS Start Date: 06/15/15 Stop Date: 06/15/16 Status: Ordered citalopram 40 mg oral tablet 1 tabs, Oral, Daily, # 30 tabs, 3 Refill(s), Pharmacy: [facility] #[id number] , 1 tabs Oral Daily Start Date: 07/07/14 Status: Ordered fluticasone 50 mcg/inh nasal spray 1 sprays, Nasal, BID, # 1 Each, 3 Refill(s), Pharmacy: [facility] #[id number] Start Date: 06/15/15 Status: Ordered garlic oral tablet 0 Refill(s) Start Date: 11/04/14 Status: Ordered lovastatin 40 mg oral tablet See Instructions, TAKE ONE TABLET BY MOUTH DAILY, # 90 tabs, 1 Refill(s), Pharmacy: [facility] #[id number], TAKE ONE TABLET BY MOUTH DAILY Start Date: 06/15/15 Status: Ordered meclizine 25 mg oral tablet See Instructions, TAKE ONE TABLET BY MOUTH THREE TIMES A DAY NEEDED FOR DIZZINESS, # 30 tabs, 2 Refill(s), eRx: [facility] #[id number], TAKE ONE TABLET BY MOUTH THREE TIMES A DAY NEEDED FOR DIZZINESS Start Date: 09/09/15 Status: Ordered meloxicam 15 mg oral tablet See Instructions, TAKE ONE TABLET BY MOUTH DAILY as needed for pain, # 30 tabs, 2 Refill(s), Pharmacy: [facility] #[id number], TAKE ONE TABLET BY MOUTH DAILY as needed for pain Start Date: 11/07/15 Status: Ordered Singulair 10 mg oral tablet 1 tabs, Oral, qPM, # 30 tabs, 11 Refill(s), 1 tabs Oral qPM Start Date: 07/07/14 Status: Ordered Ventolin HFA 90 mcg/inh inhalation aerosol 2 puffs, Inhalation, QID, as needed for wheezing, # 8 g, 3 Refill(s), Pharmacy: [facility] #[id number], 2 puffs Inhalation QID,PRN:as needed for wheezing Start Date: 06/15/15 Status: Ordered Vitamin D3 1,000 Intl_Units, 1 QD, 0 Refill(s) Start Date: 11/07/15 Status: Ordered Wellbutrin Oral, Daily, TAKE 300 [...] and Plan Extracted from: Title: Office Visit Note-CDM Author: Isamar Shields PRESSURE TESTER OPERATOR Date: Assessment/Plan 1.Elevated fasting glucose Last labs are reviewed. Plan hemoglobin A1c in 6months. Ordered: Hemoglobin A1c Asthma cont same Ordered: Office Visit Level 4 Est 66409 Depression cont same Ordered: Office Visit Level 4 Est 17450 Dyslipidemia cont same. CDM report card completed and reviewed with patient. Last labs reviewed with patient. Recommendations discussed. Copy provided. Plan recheck in 6 months with fasting lipids and chemistry 1-2 days prior to the office visit. We'll plan this be a well woman exam. Counseled on flu vaccine. Given by nursing. Ordered: Comprehensive Metabolic Panel Lipid Panel Obesity Encourage her to continue working on exercise and weight loss. Seasonal allergies Sinus rinses twice a day may be of benefit. Ordered: Office Visit Level 4 Est 48032 Sinusitis Amoxicillin 875 mg one by mouth twice a day 10 days. Ggkg-ein-smadrol Mucinex may be of benefit. Triceps strain OK to take Tylenol per package instructions as needed for pain. Icy hot or other muscle rub 2-3 x a day to affected area. Stretching exercises demonstrated. Do these 2-3 x a day. Avoid lifting and other activities that exacerbate the pain. If inc weakness/N/T or pain persist for more than 4-6 weeks let us know. May need to consider PT or imaging. . Ordered: Office Visit Level 4 Est 50153 Orders: amoxicillin, 875 mg 1 tabs, Oral, BID, X 10 days, # 20 tabs, 0 Refill( s), Pharmacy: [facility] #[id number], 1 tabs Oral BID,x10 days
--- OUTSIDE RECORDS SUMMARY | 2016-12-14 22:22 | XMS REPORT ---
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
--- OUTSIDE RECORDS SUMMARY | 2016-12-14 22:22 | XMS REPORT ---
Author Author Vikki Loco [facility] [employer] Address Unknown Phone Unavailable Care Team Providers Care Community Worker Name Role Phone Vikki Loco Unavailable Allergies No Known Allergies Problems Problem Type Condition Code Onset Dates Condition Status Problem Major depressive disorder, recurrent, in partial remission F33.41 Active Medications No Known Medications Results No Known Results Summary Purpose [employer] Submission
--- OUTSIDE RECORDS SUMMARY | 2016-12-14 22:22 | XMS REPORT ---
Author Author Chiara Sanchez Organization [employer] Address Unknown Phone Unavailable Care Team Providers Care Carbon Paste Mixer Operator Name Role Phone Chiara Sanchez CP Unavailable Allergies No Known Allergies Problems Problem Type Condition Code Onset Dates Condition Status Problem Major depressive disorder, recurrent, in partial remission F33.41 Active Medications No Known Medications Results No Known Results Summary Purpose [employer] Submission
--- OUTSIDE RECORDS SUMMARY | 2016-12-14 22:22 | XMS REPORT ---
Author Author Chiara Sanchez Organization [employer] Address Unknown Phone Unavailable Care Team Providers Care Insole Buffer Name Role Phone Chiara Sanchez CP Unavailable Allergies, Adverse Reactions, Alerts Substance Reaction Event Type Keflex paralysis Drug Allergy seasonial allergies Info Not Available Non Drug Allergy Problems Problem Type Condition Code Onset Dates Condition Status Assessment Major depressive disorder, recurrent, in partial remission F33.41 Active Problem Major depressive disorder, recurrent, in partial remission F33.41 Active Medications Medication Code System Code Instructions Start Date End Date Status Dosage Vitamin D-[address] [facility] [address]-55 1000 Orally not defined Wellbutrin XL [facility] [address]-15 150 MG Orally Once a day May 10, 2015 1 tablet in the morning Advair Diskus [facility] [address]-27 100-50 MCG/DOSE Inhalation Twice a day 1 puff Flonase [facility] [address]-09 50 MCG/ACT Nasally Once a day 1 spray in each nostril Citalopram Hydrobromide [facility] [address]-14 40 MG Orally Once a day 1 tablet Ventolin HFA [facility] [address]-31 108 (90 Base) MCG/ACT Inhalation every 4 hrs 2 puffs as needed Singulair [facility] [address]-62 10 MG Orally Once a day 1 tablet in the evening Lovastatin [facility] [address]-15 40 MG Orally Once a day 1 tablet with a meal Procedures Procedure Coding System Code Date OFFICE VISIT, EST-MOD. COMPLEXITY (25 MIN) CPT-4 04427 Jul 12, 2015 Vital Signs Date/Time: Jul 12, 2015 Height 63.5 in Weight 206 lbs Temperature 98.5 F Blood Pressure Diastolic 64 mm Hg Blood Pressure Systolic 98 mm Hg Cardiac Monitoring Heart Rate 76 /min BMI 35.91 Index Respiratory Rate 20 /min Results No Known Results Summary Purpose [employer] Submission
--- OUTSIDE RECORDS SUMMARY | 2016-12-14 22:22 | XMS REPORT | Referral Summary ---
Author Author [facility], [facility] Organization [facility] Address Unknown Phone Unavailable Care Team Providers Care Plug Wirer Name Role Phone Aisha Ornelas Primary Care Physician [phone] Encounter Date(s): 11/07/15 - 11/07/15 [facility]ST[facility], [address] [place] [address] Discharge Diagnosis: Dyslipidemia Discharge Diagnosis: Injury of middle finger Discharge Diagnosis: Myalgia Discharge Disposition: 01-Home or Self Care Attending Physician: Isamar Shields APRN Admitting Physician: Isamar Shields APRN Vital Signs Most recent to 1 oldest [Reference Range]: Temperature Tympanic 36.5 degC [36.6-38.1 degC] *LOW* (11/07/15 11:02 AM) Peripheral Pulse 80 bpm Rate [60-100 bpm] (11/07/15 11:02 AM) Blood Pressure 108/66 mmHg [90-140/60-90 mmHg] (11/07/15 11:02 AM) Problem List Condition Effective Dates Status [...] DAY, # 28 Each, 5 Refill(s), Pharmacy: [facility] #[id number] Start Date: 06/15/15 Status: Ordered cetirizine 10 mg oral tablet See Instructions, TAKE ONE TABLET BY MOUTH DAILY NEEDED FOR ALLERGY SYMPTOMS , # 90 tabs, 1 Refill(s), Pharmacy: [facility] #[id number], TAKE ONE TABLET BY MOUTH DAILY NEEDED FOR ALLERGY SYMPTOMS Start Date: 06/15/15 Stop Date: 06/15/16 Status: Ordered citalopram 40 mg oral tablet 1 tabs, Oral, Daily, # 30 tabs, 3 Refill(s), Pharmacy: [facility] #[id number] , 1 tabs Oral Daily Start Date: 07/07/14 Status: Ordered fluticasone 50 mcg/inh nasal spray 1 sprays, Nasal, BID, # 1 Each, 3 Refill(s), Pharmacy: [facility] #[id number] Start Date: 06/15/15 Status: Ordered garlic oral tablet 0 Refill(s) Start Date: 11/04/14 Status: Ordered lovastatin 40 mg oral tablet See Instructions, TAKE ONE TABLET BY MOUTH DAILY, # 90 tabs, 1 Refill(s), Pharmacy: [facility] #[id number], TAKE ONE TABLET BY MOUTH DAILY Start Date: 06/15/15 Status: Ordered meclizine 25 mg oral tablet See Instructions, TAKE ONE TABLET BY MOUTH THREE TIMES A DAY NEEDED FOR DIZZINESS, # 30 tabs, 2 Refill(s), eRx: [facility] #[id number], TAKE ONE TABLET BY MOUTH THREE TIMES A DAY NEEDED FOR DIZZINESS Start Date: 09/09/15 Status: Ordered meloxicam 15 mg oral tablet See Instructions, TAKE ONE TABLET BY MOUTH DAILY as needed for pain, # 30 tabs, 2 Refill(s), Pharmacy: [facility] #[id number], TAKE ONE TABLET BY MOUTH DAILY as needed for pain Start Date: 4/11/16 Status: Ordered Singulair 10 mg oral tablet 1 tabs, Oral, qPM, # 30 tabs, 11 Refill(s), 1 tabs Oral qPM Start Date: 07/07/14 Status: Ordered Ventolin HFA 90 mcg/inh inhalation aerosol 2 puffs, Inhalation, QID, as needed for wheezing, # 8 g, 3 Refill(s), Pharmacy: [facility] #[id number], 2 puffs Inhalation QID,PRN:as needed for wheezing [...] and Plan Extracted from: Title: Office Visit Note-finger Author: Isamar Shields FOAM MACHINE OPERATOR Date: 11/06 injury Assessment/Plan 1.Injury of middle finger X-ray of the finger obtained and reviewed. No fractures noted. Results called to patient. For comfort a fingerIs applied and provided for patient. She can wear it as she desires. Range of motionperiodically. Restart meloxicam 15 mg a day. Take with food. Reevaluate next follow-up appointment. Dyslipidemia Continue statin as holding it did not change her body aches. Myalgia Mild. Not getting worse as time progresses. Orders: meloxicam, See Instructions, TAKE ONE TABLET BY MOUTH DAILY as needed for pain, # 30 tabs, 2 Refill(s), Pharmacy: [facility] #[id number], TAKE ONE TABLET BY MOUTH DAILY as needed for pain XR Finger 3rd Digit Left
--- OUTSIDE RECORDS SUMMARY | 2016-12-14 22:22 | XMS REPORT ---
Author Author Chiara Sanchez Organization [employer] Address Unknown Phone Unavailable Care Team Providers Care Ticket Attendant Name Role Phone Chiara Sanchez CP Unavailable Allergies, Adverse Reactions, Alerts Substance Reaction Event Type Keflex paralysis Drug Allergy Problems Problem Type Condition ICD-9 Code Onset Dates Condition Status Problem Bereavement, uncomplicated V62.82 Active Assessment Major depressive disorder, single episode, in partial or unspecified remission 296.25 Active Problem Major depressive disorder, single episode, in partial or unspecified remission 296.25 Active Assessment Bereavement, uncomplicated V62.82 Active Medications Medication Code System Code Instructions Start Date End Date Status Dosage Lovastatin [facility] [address]-42 40 MG Orally Once a day 1 tablet with a meal Flonase [facility] [address]-68 50 MCG/ACT Nasally Once a day 1 spray in each nostril Singulair [facility] [address]-68 10 MG Orally Once a day 1 tablet in the evening Trazodone HCl [facility] [address]-08 50 MG Orally Once a day 1 tablet at bedtime Ventolin HFA [facility] [address]-63 108 (90 Base) MCG/ACT Inhalation every 4 hrs 2 puffs as needed Advair Diskus [facility] [address]-82 100-50 MCG/DOSE Inhalation Twice a day 1 puff Citalopram Hydrobromide [facility] [address]-03 40 MG Orally Once a day 1 tablet Procedures Procedure Coding System Code Date OFFICE VISIT, EST-MOD. COMPLEXITY (25 MIN) CPT-4 96989 Sep 14, 2014 Vital Signs Date/Time: Sep 14, 2014 Height 63.5 in Weight 209.8 lbs Temperature 98.9 F Blood Pressure Diastolic 64 mm Hg Blood Pressure Systolic 100 mm Hg Cardiac Monitoring Heart Rate 84 /min BMI 36.58 Index Respiratory Rate 24 /min Results No Known Results Summary Purpose [employer] Submission
--- OUTSIDE RECORDS SUMMARY | 2016-12-14 22:22 | XMS REPORT | Referral Summary ---
Author Author [facility]ST[facility]itez [facility], [facility] Organization [facility]ST[facility]ite[facility] Address Unknown Phone Unavailable Care Team Providers Care Software Project Engineer Name Role Phone Aisha Ornelas Primary Care Physician [phone] Encounter VC Date(s): 08/26/15 - 08/26/15 [facility]ST[facility] [address] [place] [address] Discharge Diagnosis: Benign positional vertigo Discharge Diagnosis: Left arm pain Discharge Diagnosis: Depression Discharge Diagnosis: Asthma Discharge Disposition: 01-Home or Self Care Attending Physician: Miles Ornelas MD Admitting Physician: Miles Ornelas MD Vital Signs Most recent to 1 oldest [Reference Range]: Temperature Tympanic 36.4 degC [36.6-38.1 degC] *LOW* (08/26/15 2:58 PM) Peripheral Pulse 76 bpm Rate [60-100 bpm] (08/26/15 2:58 PM) Respiratory Rate 18 br/min [14-20 br/min] (08/26/15 2:58 PM) Blood Pressure 104/70 mmHg [90-140/60-90 mmHg] (08/26/15 2:58 PM) Problem List Condition Effective Dates Status [...] DAY, # 28 Each, 5 Refill(s), Pharmacy: [facility] #[id number] Start Date: 06/15/15 Status: Ordered cetirizine 10 mg oral tablet See Instructions, TAKE ONE TABLET BY MOUTH DAILY NEEDED FOR ALLERGY SYMPTOMS , # 90 tabs, 1 Refill(s), Pharmacy: [facility] #[id number], TAKE ONE TABLET BY MOUTH DAILY NEEDED FOR ALLERGY SYMPTOMS Start Date: 06/15/15 Stop Date: 06/15/16 Status: Ordered citalopram 40 mg oral tablet 1 tabs, Oral, Daily, # 30 tabs, 3 Refill(s), Pharmacy: [facility] #[id number] , 1 tabs Oral Daily Start Date: 07/07/14 Status: Ordered fluticasone 50 mcg/inh nasal spray 1 sprays, Nasal, BID, # 1 Each, 3 Refill(s), Pharmacy: [facility] #[id number] Start Date: 06/15/15 Status: Ordered garlic oral tablet 0 Refill(s) Start Date: 11/04/14 Status: Ordered lovastatin 40 mg oral tablet See Instructions, TAKE ONE TABLET BY MOUTH DAILY, # 90 tabs, 1 Refill(s), Pharmacy: [facility] #[id number], TAKE ONE TABLET BY MOUTH DAILY Start Date: 06/15/15 Status: Ordered meclizine 25 mg oral tablet 25 mg 1 tabs, Oral, TID, as needed for dizziness, # 30 tabs, 0 Refill(s), Pharmacy: [facility] #[id number], 1 tabs Oral TID,PRN:as needed for dizziness Start Date: 08/26/15 Status: Ordered meloxicam 15 mg oral tablet 15 mg 1 tabs, Oral, Daily, # 30 tabs, 0 Refill(s), Pharmacy: [facility] # [id number], 1 tabs Oral Daily Start Date: 08/26/15 Status: Ordered Singulair 10 mg oral tablet 1 tabs, Oral, qPM, # 30 tabs, 11 Refill(s), 1 tabs Oral qPM Start Date: 07/07/14 Status: Ordered Ventolin HFA 90 mcg/inh inhalation aerosol 2 puffs, Inhalation, QID, as needed for wheezing, # 8 g, 3 Refill(s), Pharmacy: [facility] #[id number], 2 puffs Inhalation QID,PRN:as needed for wheezing [...] Visit Note Author: Miles Ornelas MD Date: 08/26/15 Assessment/Plan Asthma, Unspecified asthma, uncomplicated This appears to be chronic and stable no change in current treatment is recommended. 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 I've recommended intermittent meclizine usage. I told that this problem reallycan't be curedand OB times when it's worse than other times when it's better. If she has further questions or concerns or Ordered: Office Visit Level 4 Est 46454 Depression, Major depressive disorder, single episode, unspecified Chronic stable no change in current treatment. Ordered: Office Visit Level 4 Est 73935 Left arm pain, Pain in left arm I think this is muscular and I've recommendedmeloxicam 15 mg a day for the next 2-3 weeks. If not improving follow-up. Ordered: Office Visit Level 4 Est 51247 Orders: meclizine, 25 mg 1 tabs, Oral, TID, as needed for dizziness, # 30 tabs , 0 Refill(s), Pharmacy: [facility] #[id number], 1 tabs Oral TID,PRN:as needed for dizziness meloxicam, 15 mg 1 tabs, Oral, Daily, # 30 tabs, 0 Refill(s), Pharmacy: [facility] #[id number], 1 tabs Oral Daily
--- OUTSIDE RECORDS SUMMARY | 2016-12-14 22:22 | XMS REPORT ---
Author Author Chiara Sanchez Organization [employer] Address Unknown Phone Unavailable Care Team Providers Care Community Fundraiser Name Role Phone Chiara Sanchez CP Unavailable [...] Instructions Start Date End Date Status Dosage Flonase [facility] [address]-70 50 MCG/ACT Nasally Once a day 1 spray in each nostril Meclizine HCl [facility] [address]-80 25 MG Orally Once a day 1 tablet as needed Citalopram Hydrobromide [facility] [address]-71 40 MG Orally Once a day 1 tablet Advair Diskus [facility] [address]-23 100-50 MCG/DOSE Inhalation Twice a day 1 puff Lovastatin [facility] [address]-08 40 MG Orally Once a day 1 tablet with a meal Ventolin HFA [facility] [address]-32 108 (90 Base) MCG/ACT Inhalation every 4 hrs 2 puffs as needed Wellbutrin XL [facility] [address]-66 300 MG Orally Once a day May 10, 2015 1 tablet in the morning Singulair [facility] [address]-84 10 MG Orally Once a day 1 tablet in the evening Procedures Procedure Coding System Code Date OFFICE VISIT, EST-LOW COMPLEXITY (15 MIN.) CPT-4 17639 Apr 03, 2016 Vital Signs Date/Time: Apr 03, 2016 Temperature 98.8 F Height 63.5 in Weight 212.8 lbs Blood Pressure Diastolic 80 mm Hg Blood Pressure Systolic 122 mm Hg Cardiac Monitoring Heart Rate 78 /min BMI 37.10 Index Respiratory Rate 20 /min Results No Known Results Summary Purpose [employer] Submission
--- OUTSIDE RECORDS SUMMARY | 2016-12-14 22:22 | XMS REPORT | Referral Summary ---
Author Author Via KRISTIN Benitez [facility], [facility] Organization [facility] KRISTIN Benitez [facility] Address Unknown Phone Unavailable Care Team Providers Care Deputy United States Marshal Name Role Phone Randall Rivers Primary Care Physician [phone] Encounter VC Date(s): 12/10/14 - 12/10/14 [facility] KRISTIN Benitez [place], [address] [place] [address]- Discharge Disposition: 01-Home or Self Care Attending [...] DAY, # 28 Each, 5 Refill(s), Pharmacy: [facility] #[id number] Start Date: 06/15/15 Status: Ordered cetirizine 10 mg oral tablet See Instructions, TAKE ONE TABLET BY MOUTH DAILY NEEDED FOR ALLERGY SYMPTOMS , # 90 tabs, 1 Refill(s), Pharmacy: [facility] #[id number], TAKE ONE TABLET BY MOUTH DAILY NEEDED FOR ALLERGY SYMPTOMS Start Date: 06/15/15 Stop Date: 06/15/16 Status: Ordered citalopram 40 mg oral tablet 1 tabs, Oral, Daily, # 30 tabs, 3 Refill(s), Pharmacy: [facility] #[id number] , 1 tabs Oral Daily Start Date: 07/07/14 Status: Ordered fluticasone 50 mcg/inh nasal spray 1 sprays, Nasal, BID, # 1 Each, 3 Refill(s), Pharmacy: [facility] #[id number] Start Date: 06/15/15 Status: Ordered garlic oral tablet 0 Refill(s) Start Date: 11/04/14 Status: Ordered lovastatin 40 mg oral tablet See Instructions, TAKE ONE TABLET BY MOUTH DAILY, # 90 tabs, 1 Refill(s), Pharmacy: [facility] #[id number], TAKE ONE TABLET BY MOUTH DAILY Start Date: 06/15/15 Status: Ordered MiraLax oral powder for reconstitution 17 g, Oral, Daily, dissolve in water before taking, X 30 days, # 510 g, 1 Refill (s), Pharmacy: [facility] #[id number] Start Date: 06/15/15 Stop Date: 08/14/15 Status: Ordered Singulair 10 mg oral tablet 1 tabs, Oral, qPM, # 30 tabs, 11 Refill(s), 1 tabs Oral qPM Start Date: 07/07/14 Status: Ordered Ventolin HFA 90 mcg/inh inhalation aerosol 2 puffs, Inhalation, QID, as needed for wheezing, # 8 g, 3 Refill(s), Pharmacy: [facility] #[id number], 2 puffs Inhalation QID,PRN:as needed for wheezing [...] gone., # 21 tabs, 0 Refill(s), Pharmacy: [facility] #[id number], Take 6 tabs on day one and then decrease by one tablet daily until gone.
--- OUTSIDE RECORDS SUMMARY | 2016-12-14 22:22 | XMS REPORT ---
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
--- OUTSIDE RECORDS SUMMARY | 2016-12-14 22:22 | XMS REPORT | Referral Summary ---
Author Author [facility] KRISTIN Benitez [facility], [facility] Organization [facility] KRISTIN Benitez [facility] Address Unknown Phone Unavailable Care Team Providers Care Prosthetics Assistant Name Role Phone Aisha Ornelas Primary Care Physician [phone] Encounter Date(s): 05/11/16 - 05/11/16 [facility] KRISTIN Benitez [facility], [address] [place] [address]- Discharge Diagnosis: Obesity Discharge Diagnosis: Acute URI Discharge Diagnosis: Sore throat Discharge Diagnosis: Asthma Discharge Diagnosis: Elevated fasting glucose Discharge Diagnosis: Depression Discharge Diagnosis: Dyslipidemia Discharge Disposition: 01-Home or Self Care Attending Physician: Isamar Shields APRN Admitting Physician: Isamar Shields APRN Vital Signs Most recent to 1 oldest [Reference Range]: Temperature Tympanic 36.7 degC [36.6-38.1 degC] (05/11/16 1:23 PM) Peripheral Pulse 82 bpm Rate [60-100 bpm] (05/11/16 1:23 PM) Blood Pressure 106/64 mmHg [90-140/60-90 mmHg] (05/11/16 1:23 PM) SpO2 95 % (05/11/16 1:23 PM) Problem List Condition Effective Dates Status [...] DAY, # 28 Each, 5 Refill(s), Pharmacy: [facility] #[id number] Start Date: 06/15/15 Status: Ordered cetirizine 10 mg oral tablet See Instructions, TAKE ONE TABLET BY MOUTH DAILY NEEDED FOR ALLERGY SYMPTOMS , # 90 tabs, 0 Refill(s), Pharmacy: [facility] #[id number], TAKE ONE TABLET BY MOUTH DAILY NEEDED FOR ALLERGY SYMPTOMS Start Date: 04/18/16 Status: Ordered fluticasone 50 mcg/inh nasal spray 1 sprays, Nasal, BID, # 1 Each, 3 Refill(s), Pharmacy: [facility] #[id number] Start Date: 04/24/16 Status: Ordered garlic oral tablet 0 Refill(s) Start Date: 11/04/14 Status: Ordered lovastatin 40 mg oral tablet See Instructions, TAKE ONE TABLET BY MOUTH DAILY, # 90 tabs, 3 Refill(s), Pharmacy: [facility] #[id number], TAKE ONE TABLET BY MOUTH DAILY Start Date: 02/17/16 Status: Ordered meclizine 25 mg oral tablet See Instructions, TAKE ONE TABLET BY MOUTH THREE TIMES A DAY NEEDED FOR DIZZINESS, # 30 tabs, eRx: [facility] #[id number], TAKE ONE TABLET BY MOUTH THREE TIMES A DAY NEEDED FOR DIZZINESS Start Date: 05/04/16 Status: Ordered meloxicam 15 mg oral tablet See Instructions, TAKE ONE TABLET BY MOUTH DAILY as needed for pain, # 30 tabs, 2 Refill(s), Pharmacy: [facility] #[id number], TAKE ONE TABLET BY MOUTH DAILY as needed for pain Start Date: 11/07/15 Status: Ordered Singulair 10 mg oral tablet 10 mg 1 tabs, Oral, qPM, # 90 tabs, 3 Refill(s), Pharmacy: [facility] # [id number], 1 tabs Oral qPM Start Date: 05/01/16 Status: Ordered triamcinolone 0.1% topical cream 1 chinmay, Topical, BID, hand eczema, # 60 g, 0 Refill(s), Pharmacy: [facility] #[id number] Start Date: 05/01/16 Status: Ordered Ventolin HFA 90 mcg/inh inhalation aerosol 2 puffs, Inhalation, QID, as needed for wheezing, # 8 g, 3 Refill(s), Pharmacy: [facility] #[id number], 2 puffs Inhalation QID,PRN:as needed for wheezing Start Date: 06/15/15 Status: Ordered Vitamin D3 1000 intl units oral tablet 1,000 Intl_Units 1 tabs, Oral, Daily, # 30 tabs, 0 Refill(s) Start Date: 03/16/16 Status: Ordered Wellbutrin Oral, Daily, TAKE 300 MG QD, 0 Refill(s) Start Date: 06/15/15 Status: Ordered Results Chemistry Most recent to 1 oldest [Reference Range]: Sodium Lvl [135-144 142 mEq/L mEq/L] (05/11/16 2:14 PM) Potassium Lvl 4.1 mEq/L [3.5-5.2 mEq/L] (05/11/16 2:14 PM) Chloride [99-111 106 mEq/L mEq/L] (05/11/16 2:14 PM) CO2 [22-31 mEq/L] 27 mEq/L (05/11/16 2:14 PM) AGAP [3-20] 9 (05/11/16 2:14 PM) BUN [10-20 mg/dL] 23 mg/dL *HI* (05/11/16 2:14 PM) Glucose Lvl [70-99 94 mg/dL mg/dL] (05/11/16 2:14 PM) Creatinine Lvl 0.94 mg/dL [0.57-1.11 mg/dL] (05/11/16 2:14 PM) eGFR [>60 mL/min] >60 mL/min 1 (05/11/16 2:14 PM) Calcium Lvl 8.8 mg/dL [8.9-10.5 mg/dL] *LOW* (05/11/16 2:14 PM) Albumin Lvl [3.4-4.8 3.8 gm/dL gm/dL] (05/11/16 2:14 PM) Total Protein 6.1 gm/dL [6.0-7.6 gm/dL] (05/11/16 2:14 PM) Globulin [1.8-4.0 2.3 gm/dL gm/dL] (05/11/16 2:14 PM) ALT [0-55 U/L] 17 U/L (05/11/16 2:14 PM) AST [5-34 U/L] 13 U/L (05/11/16 2:14 PM) Alk Phos [40-150 73 U/L U/L] (05/11/16 2:14 PM) Bili Total [0.2-1.2 0.8 mg/dL mg/dL] (05/11/16 2:14 PM) Chol [0-199 mg/dL] 227 mg/dL *HI* (05/11/16 2:14 PM) Trig [0-149 mg/dL] 152 mg/dL *HI* (05/11/16 2:14 PM) HDL [40-84 mg/dL] 83 mg/dL (05/11/16 2:14 PM) LDL [0-130 mg/dL] 114 mg/dL (05/11/16 2:14 PM) VLDL Cholesterol 30 mg/dL [0-28 mg/dL] *HI* (05/11/16 2:14 PM) Cardiac Risk 2.7 [0.0-5.0] (05/11/16 2:14 PM) Hgb A1c [4.1-5.6 %] 4.2 % (05/11/16 2:14 PM) eAvg Glucose 73.8 mg/dL (05/11/16 2:14 PM) 1Result Comment: Multiply eGFR results by 1.21 [...] and Plan Extracted from: Title: Office Visit Note-asthma/URI Author: Isamar Shields RECEIVING ROOM CLERK Date: 05/11/16 Assessment/Plan 1.Acute URI Discussed with patient this is likely viral in nature. The clinical history is most compatible with that of a viral syndrome. Clinical examination does not suggest sinusitis, pneumonia, meningitis or streptococcal pharyngitis. Increase fluid intake. Enc good handwashing. Recommend OTC Mucinex , Afrin nasal spray (for no more than 5 days), per package instructions as need for cough/congestion. Recommend salt water gargles, Chloraseptic spray, throat lozenges for sore throat as needed. Saline nasal rinses may be beneficial 2 x a day. Recommend OTC Tylenol and/or Ibuprofen per package instructions as needed for fever, pain, and body aches. No aspirin. Symptoms should improve over the next 1-2 weeks. If symptoms get worse, spikes fever, inc cough or shortness of breath to notify the office for further evaluation. I do not feel that any further extensive workup is indicated. However the patient is counseled that should new symptoms develop or the symptoms worsen, further evaluation and testing may be warranted as those symptoms declare themselves and that followup is of vital importance. Rapid strep was obtained and was negative. Results called to patient. 2.Asthma Currently under fair control. If the patient's symptoms do not improve when her old result she is to let us know. Otherwise I would like her to continue on her Advairroutinely and allergy medications routinely. Plan follow-up in 6 months or sooner if medical needs arise. 3.Depression Stable. Continue same. 4.Elevated fasting glucose Encouraged patient work on healthy diet and exercise. Encouraged weight loss Check hemoglobin A1c. Ordered: Hemoglobin A1c 5.Obesity As above. 6.Dyslipidemia Previously under adequate control.Check CMP and lipids and lipidsyearly. We'll call her results and any medication changes. Statin. Ordered: Comprehensive Metabolic Panel Lipid Panel Sore throat Strep screen obtained and negative.
--- OUTSIDE RECORDS SUMMARY | 2016-12-14 22:22 | XMS REPORT ---
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
--- OUTSIDE RECORDS SUMMARY | 2016-12-14 22:22 | XMS REPORT ---
Author Author Chiara Sanchez Organization [employer] Address Unknown Phone Unavailable Care Team Providers Care Alarm Investigator Name Role Phone Chiara Sanchez CP Unavailable Allergies No Known Allergies Problems Problem Type Condition Code Onset Dates Condition Status Problem Major depressive disorder, recurrent, in partial remission F33.41 Active Medications No Known Medications Results No Known Results Summary Purpose [employer] Submission
--- OUTSIDE RECORDS SUMMARY | 2016-12-14 22:23 | XMS REPORT | Referral Summary ---
Author Author [facility], [facility] Organization [facility]ST[facility] Benite[facility] Address Unknown Phone Unavailable Care Team Providers Care Retail Interior Designer Name Role Phone Randall Rivers Primary Care Physician [phone] Encounter VC Date(s): 06/15/15 - 06/15/15 [facility]ST[facility] Benite[facility], [address] [place] [address]- Discharge Diagnosis: Epigastric abdominal pain Discharge Diagnosis: Acute constipation Discharge Disposition: 01-Home or Self Care Attending Physician: Rony Rivers MD Admitting Physician: Rony Rivers MD Vital Signs Most recent to 1 oldest [Reference Range]: Temperature Tympanic 36.7 degC [36.6-38.1 degC] (06/15/15 9:18 AM) Peripheral Pulse 72 bpm Rate [60-100 bpm] (06/15/15 9:18 AM) Respiratory Rate 18 br/min [14-20 br/min] (06/15/15 9:18 AM) Blood Pressure 114/82 mmHg [90-140/60-90 mmHg] (06/15/15 9:18 AM) Problem List Condition Effective Dates Status [...] DAY, # 28 Each, 5 Refill(s), Pharmacy: [facility] #[id number] Start Date: 06/15/15 Status: Ordered cetirizine 10 mg oral tablet See Instructions, TAKE ONE TABLET BY MOUTH DAILY NEEDED FOR ALLERGY SYMPTOMS , # 90 tabs, 1 Refill(s), Pharmacy: [facility] #[id number], TAKE ONE TABLET BY MOUTH DAILY NEEDED FOR ALLERGY SYMPTOMS Start Date: 06/15/15 Stop Date: 06/15/16 Status: Ordered citalopram 40 mg oral tablet 1 tabs, Oral, Daily, # 30 tabs, 3 Refill(s), Pharmacy: [facility] #[id number] , 1 tabs Oral Daily Start Date: 07/07/14 Status: Ordered fluticasone 50 mcg/inh nasal spray 1 sprays, Nasal, BID, # 1 Each, 3 Refill(s), Pharmacy: [facility] #[id number] Start Date: 06/15/15 Status: Ordered garlic oral tablet 0 Refill(s) Start Date: 11/04/14 Status: Ordered lovastatin 40 mg oral tablet See Instructions, TAKE ONE TABLET BY MOUTH DAILY, # 90 tabs, 1 Refill(s), Pharmacy: [facility] #[id number], TAKE ONE TABLET BY MOUTH DAILY Start Date: 06/15/15 Status: Ordered MiraLax oral powder for reconstitution 17 g, Oral, Daily, dissolve in water before taking, X 30 days, # 510 g, 1 Refill (s), Pharmacy: [facility] #[id number] Start Date: 06/15/15 Stop Date: 08/14/15 Status: Ordered Singulair 10 mg oral tablet 1 tabs, Oral, qPM, # 30 tabs, 11 Refill(s), 1 tabs Oral qPM Start Date: 07/07/14 Status: Ordered Ventolin HFA 90 mcg/inh inhalation aerosol 2 puffs, Inhalation, QID, as needed for wheezing, # 8 g, 3 Refill(s), Pharmacy: [facility] #[id number], 2 puffs Inhalation QID,PRN:as needed for wheezing [...] Visit Note Author: Rony Rivers MD Date: 06/15/15 Assessment/Plan Acute constipation Epigastric abdominal pain Plan: I am going to have you take mag citrate 150 mL 1. If your symptoms are not relieved within 12 hours take the second 150 mL's. Also start on Ludy lax one packet daily. I'm setting you up to see Dr. Gonzalez for colonoscopy. Call if you're having any problems prior to that time. We discussed the need to drink more water. We discussed the need to find a new primary care doctor. Orders: albuterol, 2 puffs, Inhalation, QID, as needed for wheezing, # 8 g, 3 Refill(s), Pharmacy: [facility] #[id number], 2 puffs Inhalation QID,PRN:as needed for wheezing cetirizine, See Instructions, TAKE ONE TABLET BY MOUTH DAILY NEEDED FOR ALLERGY SYMPTOMS, # 90 tabs, 1 Refill(s), Pharmacy: [facility] #[id number], TAKE ONE TABLET BY MOUTH DAILY NEEDED FOR ALLERGY SYMPTOMS fluticasone nasal, 1 sprays, Nasal, BID, # 1 Each, 3 Refill(s), Pharmacy: [facility] #[id number] fluticasone-salmeterol, See Instructions, INHALE ONE PUFF BY MOUTH TWICE A DAY , # 28 Each, 5 Refill(s), Pharmacy: [facility] #[id number] lovastatin, See Instructions, TAKE ONE TABLET BY MOUTH DAILY, # 90 tabs, 1 Refill(s), Pharmacy: [facility] #[id number], TAKE ONE TABLET BY MOUTH DAILY polyethylene glycol 3350, 17 g, Oral, Daily, dissolve in water before taking, X 30 days, # 510 g, 1 Refill(s), Pharmacy: [facility] #[id number]
--- OUTSIDE RECORDS SUMMARY | 2016-12-14 22:23 | XMS REPORT ---
Author Author Savage Rodriguez [facility] Address [address] [place] [address] Care Team Providers Care Rice Farmworker Name Role Phone Savage Rodriguez Unavailable [phone] PROBLEMS Type Condition ICD9-CM Code [id number] Code Onset Dates Condition Status SNOMED Code Problem Major depressive disorder, recurrent, in partial remission F33.41 Active [id number] ALLERGIES Unknown Allergies SOCIAL HISTORY No smoking Hx information available PLAN OF CARE VITAL SIGNS MEDICATIONS Unknown Medications RESULTS No Results PROCEDURES No Known procedures IMMUNIZATIONS No Known Immunizations
--- OUTSIDE RECORDS SUMMARY | 2016-12-14 22:23 | XMS REPORT ---
Author Author hCiara Sanchez Organization [employer] Address Unknown Phone Unavailable Care Team Providers Care Recruitment Specialist Name Role Phone Chiara Sanchez CP Unavailable Allergies No Known Allergies Problems Problem Type Condition Code Onset Dates Condition Status Problem Major depressive disorder, recurrent, in partial remission F33.41 Active Medications No Known Medications Results No Known Results Summary Purpose [employer] Submission
--- OUTSIDE RECORDS SUMMARY | 2016-12-14 22:23 | XMS REPORT ---
Author Author Ravinder Tineo Organization [employer] Address Unknown Phone Unavailable Care Team Providers Care Business Support Professional Name Role Phone Ravinder Tineo CP Unavailable Allergies No Known Allergies Problems Problem Type Condition Code Onset Dates Condition Status Problem Major depressive disorder, recurrent, in partial remission F33.41 Active Medications No Known Medications Results No Known Results Summary Purpose [employer] Submission
--- OUTSIDE RECORDS SUMMARY | 2016-12-14 22:23 | XMS REPORT ---
Author Author Chiara Sanchez Organization [employer] Address Unknown Phone Unavailable Care Team Providers Care Cutter Hand Name Role Phone Chiara Sanchez CP Unavailable Allergies No Known Allergies Problems Problem Type Condition Code Onset Dates Condition Status Problem Major depressive disorder, recurrent, in partial remission F33.41 Active Medications No Known Medications Results No Known Results Summary Purpose [employer] Submission
--- OUTSIDE RECORDS SUMMARY | 2016-12-14 22:23 | XMS REPORT ---
Author Author Chiara Sanchez Organization [employer] Address Unknown Phone Unavailable Care Team Providers Care Fine Unhairer Name Role Phone Chiara Sanchez CP Unavailable [...] Date End Date Status Dosage Ventolin HFA [facility] [address]-59 108 (90 Base) MCG/ACT Inhalation every 4 hrs 2 puffs as needed Singulair [facility] [address]-95 10 MG Orally Once a day 1 tablet in the evening Advair Diskus [facility] [address]-95 100-50 MCG/DOSE Inhalation Twice a day 1 puff Citalopram Hydrobromide [facility] [address]-78 40 MG Orally Once a day 1 tablet Vitamin D-3 [facility] [address]-92 5000 UNIT Orally not defined Lovastatin [facility] [address]-17 40 MG Orally Once a day 1 tablet with a meal Wellbutrin XL [facility] [address]-48 150 MG Orally Once a day May 10, 2015 1 tablet in the morning Flonase [facility] [address]-77 50 MCG/ACT Nasally Once a day 1 spray in each nostril Procedures Procedure Coding System Code Date OFFICE VISIT, EST-MOD. COMPLEXITY (25 MIN) CPT-4 10479 May 10, 2015 Vital Signs Date/Time: May 10, 2015 Height 63.5 in Weight 205.5 lbs Temperature 98.5 F Blood Pressure Diastolic 60 mm Hg Blood Pressure Systolic 96 mm Hg Cardiac Monitoring Heart Rate 80 /min BMI 35.83 Index Respiratory Rate 20 /min Results No Known Results Summary Purpose [employer]Clinical[employer] Submission
--- OUTSIDE RECORDS SUMMARY | 2016-12-14 22:23 | XMS REPORT | Referral Summary ---
Author Author [facility] K[facility]ST[facility]itez [facility], [facility] Organization Via DebbieKRISTIN Zepeda [facility] Address Unknown Phone Unavailable Care Team Providers Care Military Pilot Name Role Phone Aisha Ornelas Primary Care Physician [phone] Encounter VC Date(s): 08/16/16 - 08/16/16 [facility]ST[facility]ite[facility], [address] [place] [address]- Discharge Diagnosis: Asthma Discharge Diagnosis: Cough Discharge Disposition: 01-Home or Self Care Attending Physician: Miles Ornelas MD Admitting Physician: Miles Ornelas MD Vital Signs Most recent to 1 oldest [Reference Range]: Peripheral Pulse 80 bpm Rate [60-100 bpm] (08/16/16 3:13 PM) Respiratory Rate 20 br/min [14-20 br/min] (08/16/16 3:13 PM) Blood Pressure 96/68 mmHg [90-140/60-90 mmHg] (08/16/16 3:13 PM) SpO2 98 % (08/16/16 3:13 PM) Problem List Condition Effective Dates Status [...] DAY, # 28 Each, 5 Refill(s), Pharmacy: [facility] #[id number] Start Date: 06/18/16 Status: Ordered cetirizine 10 mg oral tablet See Instructions, TAKE ONE TABLET BY MOUTH DAILY NEEDED FOR ALLERGY SYMPTOMS , # 90 tabs, 1 Refill(s), eRx: [facility] #[id number], TAKE ONE TABLET BY MOUTH DAILY NEEDED FOR ALLERGY SYMPTOMS Start Date: 07/11/16 Status: Ordered fluticasone 50 mcg/inh nasal spray 1 sprays, Nasal, BID, # 1 Each, 3 Refill(s), Pharmacy: [facility] #[id number] Start Date: 04/24/16 Status: Ordered garlic oral tablet 0 Refill(s) Start Date: 11/04/14 Status: Ordered Levaquin 500 mg oral tablet 500 mg 1 tabs, Oral, q24hr, X 10 days, # 10 tabs, 0 Refill(s), Pharmacy: [facility] #[id number], 1 tabs Oral q24hr,x10 days Start Date: 08/16/16 Stop Date: 08/26/16 Status: Ordered lovastatin 40 mg oral tablet See Instructions, TAKE ONE TABLET BY MOUTH DAILY, # 90 tabs, 3 Refill(s), Pharmacy: [facility] #[id number], TAKE ONE TABLET BY MOUTH DAILY Start Date: 02/17/16 Status: Ordered meclizine 25 mg oral tablet See Instructions, TAKE ONE TABLET BY MOUTH THREE TIMES A DAY NEEDED FOR DIZZINESS, # 30 tabs, eRx: [facility] #[id number], TAKE ONE TABLET BY MOUTH THREE TIMES A DAY NEEDED FOR DIZZINESS Start Date: 08/13/16 Status: Ordered meloxicam 15 mg oral tablet See Instructions, TAKE ONE TABLET BY MOUTH DAILY, # 30 tabs, 2 Refill(s), eRx: [facility] #[id number], TAKE ONE TABLET BY MOUTH DAILY Start Date: 06/15/16 Status: Ordered predniSONE 10 mg oral tablet See Instructions, Take 5 tabs for 2 days, then 4 for 2 days, then 3 for 2 days then 2 for 2 days, then 1 for 2 days, # 30 Each, 0 Refill(s), Pharmacy: [facility] #[id number], Take 5 tabs for 2 days, then 4 for 2 days, then 3 for 2 days then 2 for 2... Start Date: 08/16/16 Status: Ordered Singulair 10 mg oral tablet 10 mg 1 tabs, Oral, qPM, # 90 tabs, 3 Refill(s), Pharmacy: [facility] # [id number], 1 tabs Oral qPM Start Date: 05/01/16 Status: Ordered triamcinolone 0.1% topical cream 1 chinmay, Topical, BID, hand eczema, # 60 g, 0 Refill(s), Pharmacy: [facility] #[id number] Start Date: 05/01/16 Status: Ordered Ventolin HFA 90 mcg/inh inhalation aerosol 2 puffs, Inhalation, QID, as needed for wheezing, # 8 g, 3 Refill(s), Pharmacy: [facility] #[id number], 2 puffs Inhalation QID,PRN:as needed for wheezing [...] Visit Note Author: Miles Ornelas MD Date: 08/16/16 Assessment/Plan 1.Cough I think she has an ongoing acute bronchitis. Hematocrit treated with Levaquin 500 mg daily for 10 days. [id number] Mucinex may be beneficial. Rest increased fluid intake is encouraged. Ordered: Office Visit Level 3 Est 40839 XR Chest 2 Views 2.Asthma She has a mild exacerbation of her asthmadespite a recent round of prednisone. No repeat a tapering dose of prednisone as listedhis symptoms don't improve or she continues to feel wheezy and tight she'll let us now. Continue her Advair and albuterol as before. Ordered: Office Visit Level 3 Est 49532
--- OUTSIDE RECORDS SUMMARY | 2016-12-14 22:23 | XMS REPORT | Referral Summary ---
Author Author [facility], [facility] Organization [facility] Address Unknown Phone Unavailable Care Team Providers Care Anthropology Professor Name Role Phone Aisha Ornelas Primary Care Physician [phone] Encounter VC Date(s): 09/12/16 - 09/12/16 [facility], [address] [place] [address]- Discharge Diagnosis: Viral URI Discharge Diagnosis: Mild asthma exacerbation Discharge Disposition: 01-Home or Self Care Attending Physician: Ruben Castellanos PA-C Admitting Physician: Ruben Castellanos PA-C Vital Signs Most recent to 1 oldest [Reference Range]: Temperature Tympanic 36.2 degC [36.6-38.1 degC] *LOW* (09/12/16 1:31 PM) Peripheral Pulse 93 bpm Rate [60-100 bpm] (09/12/16 1:31 PM) Blood Pressure 104/66 mmHg [90-140/60-90 mmHg] (09/12/16 1:31 PM) SpO2 95 % (09/12/16 1:31 PM) Problem List Condition Effective Dates Status [...] DAY, # 28 Each, 5 Refill(s), Pharmacy: [facility] #[id number] Start Date: 06/18/16 Status: Ordered cetirizine 10 mg oral tablet See Instructions, TAKE ONE TABLET BY MOUTH DAILY NEEDED FOR ALLERGY SYMPTOMS , # 90 tabs, 1 Refill(s), eRx: [facility] #[id number], TAKE ONE TABLET BY MOUTH DAILY NEEDED FOR ALLERGY SYMPTOMS Start Date: 07/11/16 Status: Ordered fluticasone 50 mcg/inh nasal spray 1 sprays, Nasal, BID, # 1 Each, 3 Refill(s), Pharmacy: [facility] #[id number] Start Date: 04/24/16 Status: Ordered garlic oral tablet 0 Refill(s) Start Date: 11/04/14 Status: Ordered lovastatin 40 mg oral tablet See Instructions, TAKE ONE TABLET BY MOUTH DAILY, # 90 tabs, 3 Refill(s), Pharmacy: [facility] #[id number], TAKE ONE TABLET BY MOUTH DAILY Start Date: 02/17/16 Status: Ordered meclizine 25 mg oral tablet See Instructions, TAKE ONE TABLET BY MOUTH THREE TIMES A DAY NEEDED FOR DIZZINESS, # 30 tabs, eRx: [facility] #[id number], TAKE ONE TABLET BY MOUTH THREE TIMES A DAY NEEDED FOR DIZZINESS Start Date: 08/13/16 Status: Ordered meloxicam 15 mg oral tablet See Instructions, TAKE ONE TABLET BY MOUTH DAILY, # 30 tabs, 2 Refill(s), eRx: [facility] #[id number], TAKE ONE TABLET BY MOUTH DAILY Start Date: 06/15/16 Status: Ordered predniSONE 10 mg oral tablet See Instructions, 3 tabs Oral Daily for three days 2 tabs Oral Daily three days 1 tab Oral Daily for three days, # 18 tabs, 0 Refill(s), Pharmacy: [facility] #[id number], 3 tabs Oral Daily for three days; 2 tabs Oral Daily three days; 1 tab Oral D... Start Date: 09/12/16 Stop Date: 09/21/16 Status: Ordered Singulair 10 mg oral tablet 10 mg 1 tabs, Oral, qPM, # 90 tabs, 3 Refill(s), Pharmacy: [facility] # [id number], 1 tabs Oral qPM Start Date: 05/01/16 Status: Ordered triamcinolone 0.1% topical cream 1 chinmay, Topical, BID, hand eczema, # 60 g, 0 Refill(s), Pharmacy: [facility] #[id number] Start Date: 05/01/16 Status: Ordered Ventolin HFA 90 mcg/inh inhalation aerosol 2 puffs, Inhalation, QID, as needed for wheezing, # 8 g, 3 Refill(s), Pharmacy: [facility] #[id number], 2 puffs Inhalation QID,PRN:as needed for wheezing [...] smoker Assessment and Plan Extracted from: Title: cough, congestion Author: Ruben Castellanos PA-C Date: 09/12/16 Assessment/Plan Mild asthma exacerbation Steroid taper was initiated patient was encouraged to increase her albuterol use 1-2 puffs every 4 hours as needed. She continues to have difficulty with the shortness of breathchest tightness wheezing follow-up for additional assessment. Viral URI Recommend supportive care. Rest. Practice good hand hygiene. Increase fluids. Patient was given a handout of [id number] medications that were recommended for the patient. Tylenol/Ibuprofen as needed for fever or pain. FU with PCP if not improving, worsening symptoms, or as needed. Questions were answered. Patient verbalized understanding. Patient left in stable condition.
--- OUTSIDE RECORDS SUMMARY | 2016-12-14 22:23 | XMS REPORT ---
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
--- OUTSIDE RECORDS SUMMARY | 2016-12-14 22:23 | XMS REPORT | Referral Summary ---
Author Author [facility], [facility] Organization [facility] Address Unknown Phone Unavailable Care Team Providers Care Foot Orthopedist Name Role Phone Aisha Ornelas Primary Care Physician [phone] Encounter Date(s): 05/09/15 - 05/09/15 [facility], [address] [place] [address]- Discharge Diagnosis: Obesity Discharge Diagnosis: Triceps strain [...] # 60 unknown unit, 5 Refill(s), eRx: [facility] #[id number], INHALE ONE PUFF BY MOUTH TWICE A DAY Start Date: 08/23/14 Status: Ordered amoxicillin 875 mg oral tablet 875 mg 1 tabs, Oral, BID, X 10 days, # 20 tabs, 0 Refill(s), Pharmacy: [facility] #[id number], 1 tabs Oral BID,x10 days Start Date: 05/09/15 Stop Date: 05/19/15 Status: Ordered cetirizine 10 mg oral tablet See Instructions, TAKE ONE TABLET BY MOUTH DAILY NEEDED FOR ALLERGY SYMPTOMS , # 90 tabs, 1 Refill(s), eRx: [facility] #[id number], TAKE ONE TABLET BY MOUTH DAILY NEEDED FOR ALLERGY SYMPTOMS Start Date: 10/12/14 Status: Ordered citalopram 40 mg oral tablet 1 tabs, Oral, Daily, # 30 tabs, 3 Refill(s), Pharmacy: [facility] #[id number] , 1 tabs Oral Daily Start Date: 07/07/14 Status: Ordered fluticasone 50 mcg/inh nasal spray 1 sprays, Nasal, BID, # 1 Each, 3 Refill(s), Pharmacy: [facility] #[id number] Start Date: 07/07/14 Status: Ordered garlic oral tablet 0 Refill(s) Start Date: 11/04/14 Status: Ordered lovastatin 40 mg oral tablet See Instructions, TAKE ONE TABLET BY MOUTH DAILY, # 90 tabs, 1 Refill(s), Pharmacy: [facility] #[id number], TAKE ONE TABLET BY MOUTH DAILY Start Date: 02/01/15 Status: Ordered Singulair 10 mg oral tablet 1 tabs, Oral, qPM, # 30 tabs, 11 Refill(s), 1 tabs Oral qPM Start Date: 07/07/14 Status: Ordered Ventolin HFA 90 mcg/inh inhalation aerosol 2 puffs, Inhalation, QID, as needed for wheezing, # 8 g, 3 Refill(s), Pharmacy: [facility] #[id number], 2 puffs Inhalation QID,PRN:as needed for wheezing [...] Title: Office Visit Note-CDM Author: Isamar Shields APRN Date: Assessment/Plan 1.Elevated fasting glucose Last labs are reviewed. Plan hemoglobin A1c in 6months. Ordered: Hemoglobin A1c Asthma cont same Ordered: Office Visit Level 4 Est 94837 Depression cont same Ordered: Office Visit Level 4 Est 30409 Dyslipidemia cont same. CDM report card completed [...] benefit. Ordered: Office Visit Level 4 Est 31651 Sinusitis Amoxicillin 875 mg one by mouth twice a day 10 days. Jvyf-ovn-[id number] Mucinex may be of benefit. Triceps strain [...] . Ordered: Office Visit Level 4 Est 92119 Orders: amoxicillin, 875 mg 1 tabs, Oral, BID, X 10 days, # 20 tabs, 0 Refill( s), Pharmacy: [facility] #[id number], 1 tabs Oral BID,x10 days
--- OUTSIDE RECORDS SUMMARY | 2016-12-14 22:23 | XMS REPORT | Referral Summary ---
Author Author [facility], [facility] Organization [facility] Address Unknown Phone Unavailable Care Team Providers Care Diagnostic Technician Name Role Phone Aisha Ornelas Primary Care Physician [phone] Encounter VC Date(s): 03/16/16 - 03/16/16 [facility] [address] [place] [address]- Discharge Diagnosis: Davis splints Discharge Disposition: 01-Home or Self Care Attending Physician: iMles Ornelas MD Admitting Physician: Miles Ornelas MD Vital Signs Most recent to 1 oldest [Reference Range]: Temperature Tympanic 36.7 degC [36.6-38.1 degC] (03/16/16 8:50 AM) Peripheral Pulse 80 bpm Rate [60-100 bpm] (03/16/16 8:50 AM) Respiratory Rate 16 br/min [14-20 br/min] (03/16/16 8:50 AM) Blood Pressure 122/80 mmHg [90-140/60-90 mmHg] (03/16/16 8:50 AM) Problem List Condition Effective Dates Status [...] DAY, # 28 Each, 5 Refill(s), Pharmacy: [facility] #[id number] Start Date: 06/15/15 Status: Ordered cetirizine 10 mg oral tablet See Instructions, TAKE ONE TABLET BY MOUTH DAILY NEEDED FOR ALLERGY SYMPTOMS , # 90 tabs, 1 Refill(s), Pharmacy: [facility] #[id number], TAKE ONE TABLET BY MOUTH DAILY NEEDED FOR ALLERGY SYMPTOMS Start Date: 06/15/15 Stop Date: 06/15/16 Status: Ordered citalopram 40 mg oral tablet 1 tabs, Oral, Daily, # 30 tabs, 3 Refill(s), Pharmacy: [facility] #[id number] , 1 tabs Oral Daily Start Date: 07/07/14 Status: Ordered fluticasone 50 mcg/inh nasal spray 1 sprays, Nasal, BID, # 1 Each, 3 Refill(s), Pharmacy: [facility] #[id number] Start Date: 06/15/15 Status: Ordered garlic oral tablet 0 Refill(s) Start Date: 11/04/14 Status: Ordered lovastatin 40 mg oral tablet See Instructions, TAKE ONE TABLET BY MOUTH DAILY, # 90 tabs, 3 Refill(s), Pharmacy: [facility] #[id number], TAKE ONE TABLET BY MOUTH DAILY Start Date: 02/17/16 Status: Ordered meclizine 25 mg oral tablet See Instructions, TAKE ONE TABLET BY MOUTH THREE TIMES A DAY NEEDED FOR DIZZINESS, # 30 tabs, eRx: [facility] #[id number], TAKE ONE TABLET BY MOUTH THREE TIMES A DAY NEEDED FOR DIZZINESS Start Date: 02/17/16 Status: Ordered meloxicam 15 mg oral tablet See Instructions, TAKE ONE TABLET BY MOUTH DAILY as needed for pain, # 30 tabs, 2 Refill(s), Pharmacy: [facility] #[id number], TAKE ONE TABLET BY MOUTH DAILY as needed for pain Start Date: 11/07/15 Status: Ordered predniSONE 10 mg oral tablet See Instructions, Take 5 tabs for 2 days, then 4 for 2 days, then 3 for 2 days then 2 for 2 days, then 1 for 2 days, # 30 Each, 0 Refill(s), Pharmacy: [facility] #[id number], Take 5 tabs for 2 days, then 4 for 2 days, then 3 for 2 days then 2 for 2... Start Date: 03/16/16 Status: Ordered Singulair 10 mg oral tablet 1 tabs, Oral, qPM, # 30 tabs, 11 Refill(s), 1 tabs Oral qPM Start Date: 07/07/14 Status: Ordered Ventolin HFA 90 mcg/inh inhalation aerosol 2 puffs, Inhalation, QID, as needed for wheezing, # 8 g, 3 Refill(s), Pharmacy: [facility] #[id number], 2 puffs Inhalation QID,PRN:as needed for wheezing Start Date: 06/15/15 Status: Ordered Vitamin D3 1,000 Intl_Units, 1 QD, 0 Refill(s) Start Date: 11/07/15 Status: Ordered Vitamin D3 1000 intl units [...] Visit Note Author: Miles Ornelas MD Date: 03/16/16 Assessment/Plan 1.Davis splints, Other injury of other muscle(s) and tendon(s) at lower leg level, unspecified leg, initial encounter She started taking meloxicam on a daily basis. Recommended a round of prednisone. Recommended avoiding prolonged walking. I've recommended physical therapy and we'll see if we can get her into [facility] for further evaluation and treatment. If she's not improving or has further problems she' ll let us know. Ordered: Office Visit Level 3 Est 58432 Orders: predniSONE, See Instructions, Take 5 tabs for 2 days, then 4 for 2 days, then 3 for 2 days then 2 for 2 days, then 1 for 2 days, # 30 Each, 0 Refill(s), Pharmacy: [facility] #[id number], Take 5 tabs for 2 days, then 4 for 2 days, then 3 for 2 days then 2 for 2...
[2016-12-14 22:26] VITALS: Ht 158.1 cm; Wt 101.2 kg
[2016-12-14] MEDS ORDERED: FLUT16SP EA NOSTRIL (22:55)
[2016-12-14] MEDS ORDERED: CETI-269 PO (22:55)
[2016-12-14] MEDS ORDERED: LOVA40TA2 PO (22:55)
[2016-12-14] MEDS ORDERED: FLUT1DIS5 (22:55)
[2016-12-14] MEDS ORDERED: CITA40TA14 (22:55)
[2016-12-14] MEDS ORDERED: TRAZ-170 PO (22:55)
[2016-12-14] MEDS ORDERED: ORPHENADRINE 60mg/2ml INJECTION IM ONE (23:15)
[2016-12-14] MEDS ORDERED: KETOROLAC 60mg/2ml INJECTION IM ONE (23:15)
--- NOTE | 2016-12-14 23:21 | ERPDOC ---
Departure Disposition Decision Date: December 14, 2016 Disposition Decision Time: 23:53 Disposition: 01 DISCHARGED HOME, SELF-CARE Impression Impression Impression: Primary Impression: Low back pain Chronicity: acute Back pain laterality: bilateral Sciatica presence: with sciatica Sciatica laterality: sciatica of right side Qualified Codes: M54.41 - Lumbago with sciatica, right side Severity: Moderate Condition: Stable Seen By: Mid-level only Referrals: LISHA BRADSHAW MD (Family) Patient Instructions: Acute Low Back Pain (ED) Problems/Meds/Labs Reviewed?: Yes Medications reviewed and manag: Yes Additional Instructions: Take the Cyclobenzaprine and the Liberty as needed for pain. Take the Naproxen as scheduled. If this is not improving at all then follow up with your primary care provider next week. Follow up care ordered?: Yes Mental Status: Alert, Oriented Scripts Hydrocodone/Acetaminophen (Liberty 5-325 Tablet) 5-325 Tablet 1 TAB PO Q6H Y for PAIN, #6 TAB 0 Refills Prov: CHRISTIAN BRYSON APRN 12/14/16 Naproxen (Naprosyn) 500 Mg Tablet 1 TAB PO BID, #20 TAB 0 Refills Prov: ESTEVAN BRYSONA Maria Guadalupe AUGUSTN 12/14/16 Cyclobenzaprine HCl (Cyclobenzaprine HCl) 10 Mg Tablet 1 TAB PO TID, #15 TAB 0 Refills Prov: CHRISTIAN BRYSON APRN 12/14/16 HPI - Back Pain General Chief Complaint: Low Back Pain or Injury Stated Complaint: BRUISE LOWER BACK,TROUBLE WALKING Time Seen by Provider: 22:31 Source: patient Exam Limitations: no limitations HPI - Back Pain Initial Comments She noted in the middle of the night a few nights ago that she could not get comfortable. She has had worsening back pain since then. Has not taken anything at home for the pain at all. Has never had pain like this in the past. Pain is in the lower back and radiates down both legs but the right more than the left. She denies any fever, chills, vomiting, or trauma/injury that may be the source of the pain. Occurred At: home Onset/Timing: Gradual Duration: other (Over the last 2 days) Severity/Quality: moderate Location: lumbar spine Radiation: lower legs (bilateral lower legs but right more than left) Method of Injury/Context: unknown Associated Sypmtoms: lower back pain, DENIES: fever, loss of bladder control, loss of bowel control, muscle spasms, numbness in legs/feet, sensory/motor loss , tingling in legs/feet, weakness Hx of Similar Symptoms: No Allergies: Coded Allergies: cephalexin (Verified Allergy, Severe, paralysis, 12/14/16) pt reports paralysis with use Past History Past Medical History Musculoskeletal: rheumatoid arthritis Surgical History General: appendix Family History Family History: Negative Social History Smoking Status: Never smoker Substance Use Type: does not use Alcohol Intake: none Review of Systems Constitutional Constitutional: DENIES: chills, dizziness, fatigue, fever, weakness Cardiovascular Cardiac: DENIES: chest pain, orthopnea Rhythm/Rate: DENIES: irregular beat, palpitations Pulmonary Respiratory: DENIES: cough, dyspnea, sputum GI Upper Abdomen: DENIES: nausea, pain, vomiting Lower Abdomen: DENIES: constipation, diarrhea, pain General: DENIES: dysuria, frequency, hematuria, urgency Musculoskeletal General: pain (low back), tenderness (mild TTP in the lumbar spine) Integumentary Skin: DENIES: rash Neurological General: DENIES: headache, numbness, tingling, weakness Physical Exam General General Nourishment: well nourished, well developed, appears stated age, no acute distress, adult General Body Habitus: well groomed Vitals and Pain First Documented Vital Signs Date Time Temp Pulse Resp B/P Pulse Ox O2 Delivery O2 Flow Rate FiO2 12/14/16 22:26 98.3 90 20 135/70 96 Room Air Weight: Kilograms: 101.200 Height (feet): 5 Height (inches): 2.25 Triage Pain Scale: RN VS reviewed by Provider: Yes Normal Exams: Neck: Full range of motion, without adenopathy, JVD, bruits or thyromegaly Chest/Resp: Clear all varela, with good airflow, and symmetry bilaterally CV: Regular rate and rhythm, without murmur or gallop, Pulses 2+ all extremities, capillary refill, <2 seconds all ext., no pedal edema noted Abdomen: Bowel sounds positive, soft, non-tender, non-distended, no hepatosplenomegaly, masses or bruits noted Lymphatic: No lymphadenopathy, or lymphedema noted Integumentary: No rashes, hives, or bruising noted Neurologic: Patient is alert, and oriented Psychiatric: Patient exhibits, appropriate attention, emotion and affect Musculoskeletal (brief) Musculoskeletal Brief: FOUND: tenderness (Moderate TTP along the lumbar spine and bilateral lower back musculature), NOT FOUND: deformity, loss of motion ( Full ROM of the BLE. ) Progress Results/Orders Orders Procedure Category Date Status Time Orphenadrine (Norflex) PHA 12/14/16 Complete 23:15 Ketorolac (Toradol) PHA 12/14/16 Complete 23:15 Hydrocodone/Apap PHA 12/15/16 In Process 5/325 Prepack (Liberty 5 00:00 Cyclobenzaprine PHA 12/15/16 In Process (Prepack) (Flexeril 00:00 Medications Current ED Medications Orphenadrine Citrate (Norflex) 60 mg O ONCE IM Last administered on 12/14/16 23:33; Start 12/14/16 at 23:15; Stop 12/14/16 at 23:16; Status DC Ketorolac Tromethamine (Toradol) 60 mg O ONCE IM Last administered on 23:33; Start 12/14/16 at 23:15; Stop 12/14/16 at 23:16; Status DC Acetaminophen/ Hydrocodone Bitart (NORCO 5 (PrePack)) 1 pack O ONCE SENT HOME ; Start 12/15/16 at 00:00; Stop 12/15/16 at 00:01 Cyclobenzaprine HCl (FLEXERIL (PrePack)) 1 pack O ONCE SENT HOME ; Start at 00:00; Stop 12/15/16 at 00:01 Progress Progress Pain is much improved after Norflex and Toradol given. Will go ahead and dismiss to home today. Follow up with PCP early next week if not improving. CHRISTIAN BRYSON APRN December 14, 2016 23:21
[2016-12-14] MEDS ORDERED: CYCL-375 PO (23:54)
[2016-12-14] MEDS ORDERED: HYDR-4246 PO (23:54)
[2016-12-14] MEDS ORDERED: NAPR500T PO (23:54)
[2016-12-15] MEDS ORDERED: CYCLOBENZAPRINE 10MG (PrePack) SENT HOME ONE
[2016-12-15] MEDS ORDERED: HYDROCODONE/APAP 5/325 (PrePack) SENT HOME ONE
[2016-12-15 00:09] VITALS: BP 124/68; PULSE 75; RESP 18; TEMP 98.3; O2SAT 96
--- NOTE | 2016-12-15 00:09 | NUR ---
DEPART PT GIVEN DI FOR ACUTE LOW BACK PAIN, FLEXERIL, NORCO, NAPROXEN, F/U. RX PROVIDED FOR NAPROXEN, NORCO, FLEXERIL. PT VERBALIZES UNDERSTANDING OF DI, MEDS, F/U. QUESTIONS ASKED/ANSWERED - DENIES FURTHER QUESTIONS/NEEDS AT THIS TIME. PERSONAL BELONGINGS GATHERED. PT AMBULATED/ESCORTED TO ED EXIT - GAIT STABLE, NO SIGN OF DISTRESS AT THIS TIME.
== END 2016-12-15 00:09 | disposition home or self-care (01) ==
LOC: ED 22:17
DX: M54.41 Lumbago with sciatica, right side (principal)
CPT/HCPCS: 96372; 99283; J1885; J2360